=== PATIENT | male | born 1955 | race Caucasian/White ===

== ENCOUNTER 2024-07-27 11:35 | Inpatient (IN) | payer MEDICARE, MEDICAID, SELFPAY ==
[2024-07-27] VITALS (18 sets, daily range): BP systolic 108–160; BP diastolic 62–78; PULSE 83–124; RESP 18–42; TEMP 36.6–37; O2SAT 4–99; BMI 21.9
--- NOTE | ~2024-07-27 | XR_ITS ---
EXAMINATION: XR CHEST CLINICAL INFORMATION: Hypoxia. Shortness of breath. COMPARISON: None available. TECHNIQUE: Frontal view of the chest was obtained. FINDINGS: Patchy right mid/lower lung airspace opacities. No left-sided airspace consolidation. No pleural effusion or pneumothorax. Unremarkable cardiomediastinal silhouette. XR/XR chest 1V IMPRESSION: Patchy right mid/lower lung airspace opacities. Electronically signed by: Braxton Freeman MD 07/27/2024 02:12 PM EDT
--- NOTE | 2024-07-27 12:21 | PC.NURSE ---
pt is alert and oriented, skin pwd, respirations slightly labored breathing at 24-28 at this time, ls slightly diminished on the the left sided, sating 94-95% on room air, pt reports for the the last three days having a productive cough, with yellow phlem, midsternal chest pain that is constant, cough gets worse when the pt lays flat, sinus tach on the monitor
[2024-07-27 12:36] LABS: Hematocrit 42.5 % (42.0-52.0); Hemoglobin 14.8 g/dl (14.0-18.0); Mean Corpuscular HGB Conc 34.8 g/dl (31.0-36.0); Mean Corpuscular Hemoglobin 33.2 pg (27.0-33.0); Mean Corpuscular Volume 95.3 fL (80.0-98.0); Mean Platelet Volume 10.8 fL (9.4-12.4); Platelet Count 226 X10*3/uL (160-400); Red Blood Count 4.46 X10*6/uL (4.60-5.80); Red Cell Distribution Width 14.1 % (11.0-16.0); White Blood Count 14.1 X10*3/uL (4.8-10.8)
--- NOTE | 2024-07-27 12:37 | ED_ITS ---
HPI - General Adult General Chief complaint: Dyspnea Stated complaint: FLU LIKE Time Seen by Provider: 07/27/24 11:52 Source: patient and EMS Mode of arrival: EMS Limitations: no limitations History of Present Illness ED Provider: Cristopher ALCANTARA HPI narrative: This is a 68-year-old male history of COPD, asthma presenting to the emergency department with cough, fatigue, malaise, myalgias, subjective fevers and chills, chest discomfort with cough for the past 3 days. Patient also reports associated shortness of breath when he coughs. He denies sick contacts. He reports he just feeling overall unwell. At this time denies abdominal pain, nausea vomiting, diarrhea, headache, vision changes, dizziness, changes in bowel or urinary habits Related Data Allergies Allergy/AdvReac Type Severity Reaction Status Date / Time Penicillins [PENICILLINS] Allergy Intermediate UPSET Verified 07/27/24 11:54 STOMACH acetaminophen [ACETAMINOPHEN] Allergy Unknown DIARRHEA Verified 07/27/24 11:54 codeine [CODEINE] Allergy Unknown NAUSEA & Verified 07/27/24 11:54 VOMITING latex [LATEX] Allergy Unknown RASH Verified 07/27/24 11:54 Review of Systems 2 Review of Systems: Yes all other systems are reviewed and are negative PMFSH Past Medical History Attestation statement: The following information was validated with the patient. Source: old records reviewed and nursing notes reviewed Social History Social History Smoked in Last 30 Days: Yes Use of substances other than those prescribed or required for medical reasons: Yes Substance Use Type: Marijuana Advance Directives: No Advance Directives Information Provided: No Do you have a plan to hurt others: No Plan Physical Exam ED Vital Signs: Vital Signs - 24 hr 07/27/24 11:51 07/27/24 11:58 07/27/24 12:17 Temperature 98.3 F Pulse Rate 107 H Respiratory Rate 28 H 26 H 25 H Blood Pressure 149/73 H Pulse Oximetry 94 Oxygen Delivery Method Room Air 07/27/24 12:48 07/27/24 12:55 07/27/24 13:38 Temperature 97.9 F Pulse Rate 99 96 92 Respiratory Rate 24 H 20 22 H Blood Pressure 125/77 134/71 Pulse Oximetry 93 95 Oxygen Delivery Method Room Air Room Air BMI result Body Mass Index 21.9 vss Appearance: Alert.? Oriented X3.? No acute distress.? Head: Normocephalic, atraumatic, no step-offs or deformities Eyes: Pupils equal, round and reactive to light.? ENT: Pharynx normal.? Neck: Normal inspection.? Neck supple.? CVS: Normal heart rate and rhythm.? Pulses normal.? Respiratory: No respiratory distress.? Breath sounds very faint expiratory wheeze b/l.? Abdomen: Soft and nontender.? Skin: Skin warm and dry.? Normal skin color.? Normal skin turgor.? Extremities: No lower extremity edema.? No calf ttp. 5/5 strength to bilateral upper and lower extremities Neuro: Oriented X 3.? No motor deficit.? No sensory deficit. CN 2-12 intact Course Reevaluation(s) Reevaluation #1: CBC with elevated white blood cell count with left shift. Chemistry no acute findings needing intervention. Troponin 43.8 likely secondary to demand ischemia/type 2 injury unlikley acs. BNP 122. Will repeat troponin at this time. Flu/Covid/RSV negative. CXR patchy right mid/lower lung airspace opacities patient will be covered with ceftriaxone and azithromycin. He was given 5 mg albuterol and Solu-Medrol however again developed wheezing. Will order bronch protocol at this time. Nursing tried to get patient up he became very tachypneic with labored breathing and became tachycardic in the 120s. Time: 15:10 Medications Administered Discontinued Medications Generic Name Dose Route Start Last Admin Trade Name Freq PRN Reason Stop Dose Admin Albuterol Sulfate 5 mg 07/27/24 12:39 07/27/24 12:54 Albuterol Sulfate 2.5 Mg/0.5 Ml Vial.Neb INHALE 07/27/24 12:40 5 mg ONCE ONE Administration Ceftriaxone Sodium 1 gm/ 50 mls @ 100 mls/hr 07/27/24 14:19 07/27/24 14:56 Sodium Chloride IV 07/27/24 14:48 100 mls/hr ONCE ONE Administration Methylprednisolone Sodium Succinate 125 mg 07/27/24 12:39 07/27/24 12:49 Methylprednisolone Sod Succ 125 Mg/2 Ml Vial IVPUSH 07/27/24 12:40 125 mg ONCE ONE Administration Medical Decision Making Medical Decision Making MDM Narrative: 68-year-old male presents for upper respiratory symptoms x3 days Physical exam faint expiratory wheezing bilaterally History and physical exam concerning for upper respiratory infection versus flu versus COVID versus RSV. Unlikely pneumonia, PE, ACS, dysrhythmia, acute respiratory distress Plan labs, viral test, chest x-ray, urine Differential Diagnosis Differential Diagnoses: The differential diagnosis associated with the presentation includes History and physical exam concerning for upper respiratory infection versus flu versus COVID versus RSV. Unlikely pneumonia, PE, ACS, dysrhythmia, acute respiratory distress Admission/Observation Consideration of admission/observation: Escalation of care including admission/observation considered possible Lab Data MDM Lab Attestation statement: I reviewed the patient's lab results. 07/27/24 12:28 07/27/24 12:28 Labs: Lab Results 07/27/24 07/27/24 Range/Units 12:28 14:45 WBC 14.1 H (4.8-10.8) X10*3/uL RBC 4.46 L (4.60-5.80) X10*6/uL Hgb 14.8 (14.0-18.0) g/dl Hct 42.5 (42.0-52.0) % MCV 95.3 (80.0-98.0) fL MCH 33.2 H (27.0-33.0) pg MCHC 34.8 (31.0-36.0) g/dl RDW 14.1 (11.0-16.0) % Plt Count 226 (160-400) X10*3/uL MPV 10.8 (9.4-12.4) fL Immature Gran % (Auto) Cancelled Neut % (Auto) Cancelled Lymph % (Auto) Cancelled [place] % (Auto) Cancelled Eos % (Auto) Cancelled Baso % (Auto) Cancelled Lymph # (Auto) Cancelled [place] # (Auto) Cancelled Eos # (Auto) Cancelled Baso # (Auto) Cancelled Abs Immat Gran (auto) Cancelled Absolute Neuts (auto) Cancelled Absolute Nucleated RBC 0.000 (0.0-0.012) X10*3/uL Nucleated RBC % (auto) 0.0 (0.0-0.2) /100WBC Neutrophils % (Manual) 87 H (45-73) % Band Neutrophils % 5 (3-5) % Lymphocytes % (Manual) 3 L (20-40) % Monocytes % (Manual) 5 (2-11) % Abs Neuts (Manual) 13.0 H (2.0-8.3) X10*3/uL Lymphocytes # (Manual) 0.4 L (1.2-4.9) X10*3/uL Monocytes # (Manual) 0.7 (0.1-1.2) X10*3/uL Toxic Vacuolation PRESENT Platelet Estimate NORMAL (NORMAL) Plt Morphology Comment NORMAL RBC Morphology NOTED [place] Cells 2+ (3-5) /OIF Acanthocytes (Spur) 2+ (3-5) /OIF Sodium 145 (135-145) mmol/L Potassium 3.5 (3.3-5.1) mmol/L Chloride 111 H (96-108) mmol/L Carbon Dioxide 23 (22-29) mmol/L Anion Gap 15 (12-20) BUN 11 (9-16) mg/dL Creatinine 0.70 (0.5-1.4) mg/dL Estim Creat Clear Calc 93.0 Estimated GFR > 60 Random Glucose 121 H (60-115) mg/dL Lactic Acid 1.7 (0.5-2.0) mmol/L Calcium 9.4 (8.4-10.2) mg/dL Magnesium 2.2 (1.6-2.6) mg/dL Total Bilirubin 0.7 (0.0-1.0) mg/dL AST 23 (5-37) U/L ALT 14 (0-40) U/L Alkaline Phosphatase 66 (39-117) U/L Troponin I High Sens 43.8 H (<3.5-35.0) ng/L B-Natriuretic Peptide 122 H (<100) pg/mL Total Protein 7.2 (6.5-8.0) g/dL Albumin 4.2 (3.5-5.0) g/dL Influenza Type A (PCR) NEGATIVE (Negative) Influenza Type B (PCR) NEGATIVE (Negative) RSV RNA Qual (PCR) NEGATIVE (Negative) SARS-CoV-2 RNA (RT-PCR) NEGATIVE (Negative) Independent Interpretation I performed an independent interpretation of an: Plain X-Ray Radiology Impression Discussion of test interpretation with radiology: I have reviewed the radiologist's reading. Independent Historian Clinical information obtained from an independent historian. History obtained from or confirmed by: EMS Chronic Conditions Patient?s care impacted by: Other (copd/ asthma ) Critical Care Time Critical Care Time Critical Care Time: Yes Total Critical Care Time: 35 Attestation: I attest to this time spent taking care of the patient, obtaining history, physical, reviewing labs, imaging, treatment of patients condition +/- specialist/hospitalist consult Discharge Plan Discharge Clinical Impression: Pneumonia Patient Disposition: Still a Patient Print Language: Green[place]ic
--- NOTE | 2024-07-27 12:40 | ECG_ITS ---
Test Reason : SOB Blood Pressure : / mmHG Vent. Rate : 103 BPM Atrial Rate : 103 BPM P-R Int : 124 ms QRS Dur : 090 ms QT Int : 358 ms P-R-T Axes : 075 042 073 degrees QTc Int : 468 ms Sinus tachycardia Otherwise normal ECG No previous ECGs available Referred By: Sonia Motley Electronically Signed By:MOSES RAO
[2024-07-27 12:49] LABS: Alanine Aminotransferase 14 U/L (0-40); Albumin Level 4.2 g/dL (3.5-5.0); Alkaline Phosphatase 66 U/L (39-117); Anion Gap 15 (12-20); Aspartate Amino Transferase 23 U/L (5-37); Bilirubin Total 0.7 mg/dL (0.0-1.0); Blood Urea Nitrogen 11 mg/dL (9-16); Calcium 9.4 mg/dL (8.4-10.2); Carbon Dioxide 23 mmol/L (22-29); Chloride 111 mmol/L (96-108); Estimated Glomerular Filt Rate > 60; Glucose Random 121 mg/dL (60-115); Magnesium 2.2 mg/dL (1.6-2.6); Potassium 3.5 mmol/L (3.3-5.1); Sodium 145 mmol/L (135-145); Total Protein 7.2 g/dL (6.5-8.0)
[2024-07-27] MEDS: methylPREDNISolone Sod Succ 125 MG/2 ML VIAL IVPUSH (12:49)
[2024-07-27] MEDS: Albuterol Sulfate 2.5 MG/0.5 ML VIAL.NEB 5 MG INHALE (12:54)
[2024-07-27 12:55] LABS: B Type Natriuretic Peptide 122 pg/mL (<100)
[2024-07-27 12:56] LABS: Troponin-I High Sensitivity 43.8 ng/L (<3.5-35.0)
[2024-07-27 13:05] LABS: Band Neutrophils Percent 5 % (3-5); Lymphocytes Absolute Manual 0.4 X10*3/uL (1.2-4.9); Lymphocytes Percent Manual 3 % (20-40); Monocytes Absolute Manual 0.7 X10*3/uL (0.1-1.2); Monocytes Percent Manual 5 % (2-11); Neutrophils Percent Manual 87 % (45-73)
[2024-07-27 13:08] LABS: RBC Morphology NOTED
[2024-07-27 13:09] LABS: Acanthocytes 2+ (3-5) /OIF; Burr Cells 2+ (3-5) /OIF; Platelet Estimate NORMAL (NORMAL); Platelet Morphology Comment NORMAL; Toxic Vacuolation PRESENT
[2024-07-27 13:13] LABS: Influenza A PCR NEGATIVE (Negative); Influenza B PCR NEGATIVE (Negative); Resp Syncy Virus RNA Qual PCR NEGATIVE (Negative); SARS COV2 PCR INHOUSE NEGATIVE (Negative)
[2024-07-27] MEDS: cefTRIAXone sodium 1 GM in 0.9 % Sodium Chloride 50 ML IV (14:56)
--- NOTE | 2024-07-27 15:00 | PC.NURSE ---
pt used the commode, had diarrhea, after getting into bed from just transferring from commode to bed and few steps pt extremely sob, labored breathing around 30, upper airway wheezing, and purse lip breathing at this time, hr rate also elevated in the 120, [place] LYLE aware of this event
[2024-07-27 15:05] LABS: Lactic Acid 1.7 mmol/L (0.5-2.0)
[2024-07-27] MEDS: Azithromycin 500 MG in 0.9 % Sodium Chloride 250 ML 125 MG IV (15:42)
[2024-07-27] MEDS: Albuterol Sulfate 5 MG, Albuterol/Iprat 2.5/0.5MG 3 ML 3 ML INHALE (15:52)
[2024-07-27 16:21] LABS: Troponin-I High Sensitivity 43.1 ng/L (<3.5-35.0)
--- NOTE | 2024-07-27 16:30 | PC.NURSE ---
pt yelling out that he is having a hard time breathing, pt was found to diaphoretic, red in the face, tachypneic around 40's, pt still sating decent at 92% on the 2l, extremely anxious tachy on the monitor in the low 120's plan to put the pt on high flow oxygen, seting on high flow is 44liter per min and tolerating well
[2024-07-27] MEDS: Furosemide 20 MG/2 ML VIAL IVPUSH (16:34)
[2024-07-27] MEDS: fentaNYL citrate/PF 100 MCG/2 ML VIAL 25 MCG IVPUSH (16:35)
[2024-07-27 16:37] LABS: ABG Refer to POC result
[2024-07-27 16:38] LABS: ABG Base Excess -4.8 mmol/L; ABG HCO3 19 mmol/L (22-26); ABG pCO2 32 mmHg (32-45); ABG pH 7.37 (7.35-7.45); ABG pO2 102 mmHg (83-108)
--- NOTE | 2024-07-27 17:45 | P.HPHOSP_ITS ---
History of Present Illness Date of Service: 07/27/24 Attending physician on admission: Den Collins Chief Complaint: Shortness of breath This is a 68-year-old male with history of COPD who presents to the emergency department with complaints of shortness of breath. History is limited due to dyspnea. Patient states that he has had shortness of breath for the past 2-3 days and then associated productive cough. He denies any associated fever or chills. He denies any recent sick contacts. In the emergency department he was tachycardic and tachypneic required IV fentanyl and transitioned from nasal cannula to high-flow oxygen. Chest x-ray showed patchy right mid/lower lung airspace opacities. Influenza, RSV, COVID-19 PCR negative. He received breathing treatments, Solu-Medrol, antibiotics and remained persistently tachypneic and hypoxic and as above had to be transitioned to high-flow oxygen. We will be admitted for further management of acute COPD exacerbation and pneumonia. Review of Systems 2 Review of Systems: Yes all other systems are reviewed and are negative Constitutional: Constitutional: Denies fever(s) Cardiovascular: Cardiovascular: Denies chest pain and Reports dyspnea Respiratory: Respiratory: Reports cough and Reports dyspnea [facility] Medical History (Updated 07/27/24 @ 17:58 by DARIELA Grady) COPD (chronic obstructive pulmonary disease) Functional capacity: independent ambulation Social History Smoked in Last 30 Days: Yes Use of substances other than those prescribed or required for medical reasons: Yes Substance Use Type: Marijuana Advance Directives: No Advance Directives Information Provided: No Do you have a plan to hurt others: No Plan Meds Allergies Allergy/AdvReac Type Severity Reaction Status Date / Time Penicillins [PENICILLINS] Allergy Intermediate UPSET Verified 07/27/24 11:54 STOMACH acetaminophen [ACETAMINOPHEN] Allergy Unknown DIARRHEA Verified 07/27/24 11:54 codeine [CODEINE] Allergy Unknown NAUSEA & Verified 07/27/24 11:54 VOMITING latex [LATEX] Allergy Unknown RASH Verified 07/27/24 11:54 Active Medications: Current Medications Acetaminophen (Acetaminophen 325 Mg Tablet) 650 mg PO Q6H PRN PRN Reason: Pain, Mild (Pain Scale 1-3), fever or headache Albuterol/Ipratropium (Albuterol/Iprat 2.5/0.5mg 3 Ml Ampul.Neb) 3 ml INHALE RQ6H WHILE AWAKE SADE Benzonatate (Benzonatate 100 Mg Capsule) 100 mg PO TID PRN PRN Reason: Cough Enoxaparin Sodium (Enoxaparin Sodium 40 Mg/0.4 Ml Syringe) 40 mg SUBCUT Q24H [facility] Hydromorphone HCl (Hydromorphone Hcl 0.5 Mg/0.5 Ml Syringe) 0.25 mg IVPUSH Q4H PRN; Protocol PRN Reason: Pain, Severe (Pain Scale 7-10) Levalbuterol HCl (Levalbuterol Hcl 1.25 Mg/3 Ml Vial.Neb) 1.25 mg INHALE Q3H PRN PRN Reason: Shortness of Breath/Wheezing Magnesium Hydroxide (Milk Of Magnesia 30 Ml Oral.Susp) 30 ml PO DAILY PRN PRN Reason: Constipation Melatonin (Melatonin 3 Mg Tablet) 6 mg PO BEDTIME PRN PRN Reason: Insomnia Nicotine (Nicotine 14 Mg Patch.Td24) 14 mg TRANSDERMA DAILY [facility] Sodium Chloride (0.9 % Sodium Chloride Flush 3 Ml Syringe) 3 ml IVFLUSH QSHIFT [facility] Home Medications ?Medication ?Instructions ?Recorded ?Confirmed ?Last Taken ?Type omeprazole 20 mg capsule,delayed 20 mg PO DAILY 07/27/24 Unknown History release pregabalin 150 mg capsule 1 mg PO BID@1400,2100 07/27/24 Unknown History pregabalin 150 mg capsule 300 mg PO DAILY 07/27/24 Unknown History Physical Exam 2 Vital Signs and Narrative: Vital Signs: Last Vital Signs Temp 97.9 F 07/27/24 13:38 Pulse 119 H 07/27/24 16:35 Resp 38 H 07/27/24 16:35 BP 129/74 07/27/24 16:34 Pulse Ox 99 07/27/24 16:35 O2 Del Method High Flow Nasal C annula 07/27/24 16:35 O2 Flow Rate 2 07/27/24 16:30 BMI result Body Mass Index 21.9 Const: Other: anxious, tachypnic General: alert and awake Nutritional Appearance: thin O rientation/consciousness: patient oriented x3 Resp: Other: appears tachypnic, b/l wheeze Cardio: Rate: tachycardic GI: Inspection: No distended Palpation (GI): Soft to palpation and nontender Neuro: General: patient oriented x3, moves all extremities and CN's II-XI intact bilaterally Extrem: General: Yes no pedal edema Results Labs 07/27/24 12:28 07/27/24 12:28 Labs: Laboratory Results - last 24 hr 07/27/24 07/27/24 07/27/24 12:28 14:45 15:51 MCV 95.3 MCH 33.2 H MCHC 34.8 RDW 14.1 Plt Count 226 MPV 10.8 Immature Gran % (Auto) Cancelled Neut % (Auto) Cancelled Lymph % (Auto) Cancelled [place] % (Auto) Cancelled Eos % (Auto) Cancelled Baso % (Auto) Cancelled Lymph # (Auto) Cancelled [place] # (Auto) Cancelled Eos # (Auto) Cancelled Baso # (Auto) Cancelled Abs Immat Gran (auto) Cancelled Absolute Neuts (auto) Cancelled Absolute Nucleated RBC 0.000 Nucleated RBC % (auto) 0.0 Neutrophils % (Manual) 87 H Band Neutrophils % 5 Lymphocytes % (Manual) 3 L Monocytes % (Manual) 5 Abs Neuts (Manual) 13.0 H Lymphocytes # (Manual) 0.4 L Monocytes # (Manual) 0.7 Toxic Vacuolation PRESENT Platelet Estimate NORMAL Plt Morphology Comment NORMAL RBC Morphology NOTED [place] Cells 2+ (3-5) Acanthocytes (Spur) 2+ (3-5) O2 Saturation ABG pH at Pt Temp ABG pCO2 at Pt Temp ABG pO2 at Pt Temp ABG HCO3 ABG Base Excess (Actual) Anion Gap 15 Estim Creat Clear Calc 93.0 Estimated GFR > 60 Random Glucose 121 H Lactic Acid 1.7 Calcium 9.4 Magnesium 2.2 Total Bilirubin 0.7 AST 23 ALT 14 Alkaline Phosphatase 66 Troponin I High Sens 43.8 H 43.1 H B-Natriuretic Peptide 122 H Total Protein 7.2 Albumin 4.2 Influenza Type A (PCR) NEGATIVE Influenza Type B (PCR) NEGATIVE RSV RNA Qual (PCR) NEGATIVE SARS-CoV-2 RNA (RT-PCR) NEGATIVE 07/27/24 16:35 MCV MCH MCHC RDW Plt Count MPV Immature Gran % (Auto) Neut % (Auto) Lymph % (Auto) [place] % (Auto) Eos % (Auto) Baso % (Auto) Lymph # (Auto) [place] # (Auto) Eos # (Auto) Baso # (Auto) Abs Immat Gran (auto) Absolute Neuts (auto) Absolute Nucleated RBC Nucleated RBC % (auto) Neutrophils % (Manual) Band Neutrophils % Lymphocytes % (Manual) Monocytes % (Manual) Abs Neuts (Manual) Lymphocytes # (Manual) Monocytes # (Manual) Toxic Vacuolation Platelet Estimate Plt Morphology Comment RBC Morphology [place] Cells Acanthocytes (Spur) O2 Saturation 98.0 ABG pH at Pt Temp 7.37 ABG pCO2 at Pt Temp 32 ABG pO2 at Pt Temp 102 ABG HCO3 19 L ABG Base Excess (Actual) -4.8 Anion Gap Estim Creat Clear Calc Estimated GFR Random Glucose Lactic Acid Calcium Magnesium Total Bilirubin AST ALT Alkaline Phosphatase Troponin I High Sens B-Natriuretic Peptide Total Protein Albumin Influenza Type A (PCR) Influenza Type B (PCR) RSV RNA Qual (PCR) SARS-CoV-2 RNA (RT-PCR) Imaging Radiologist's Impressions: Impressions Chest X-Ray 07/27/24 12:04 IMPRESSION: Patchy right mid/lower lung airspace opacities. Electronically signed by: Braxton Freeman MD 07/27/2024 02:12 PM EDT RP Workstation: [id number] Assessment and Plan (1) Pneumonia: Status: Acute (2) Acute respiratory failure with hypoxemia: Status: Acute (3) COPD exacerbation: Status: Acute Plan This is a 68-year-old male with history of COPD, active smoker who presents to the emergency department with 3 day history of increasing shortness of breath and productive cough found to have pneumonia Sepsis due to pneumonia No severe features, lactic acid 1.7 Met sepsis criteria with tachycardia, tachypnea and leukocytosis 14.1 Will treat with IV ceftriaxone, IV azithromycin Follow blood cultures Acute COPD exacerbation Due to above Systemic steroids, breathing treatments Acute respiratory failure with hypoxia Due to pneumonia and COPD management as above Wean high-flow oxygen as tolerated Tobacco dependence Smoking cessation advised NRT elevated troponin flat at 43 likely due to demand from hypoxia no chest pain med rec pending at the time of admission DVT prophylaxis-Lovenox Code status-full code Attending: Dr Collins Patient will likely require 2 midnight stay in the hospital for management of acute respiratory failure requiring antibiotics, steroids, high-flow oxygen and close monitoring of respiratory status Quality Stroke Does the patient have a stroke diagnosis?: No VTE Prior VTE?: No VTE Risk Level:: Medical - moderate - high VTE Device Contraindication: N/A - Device Ordered VTE Drug Contraindication: N/A - Med Ordered
[2024-07-27] MEDS: Enoxaparin Sodium 40 MG/0.4 ML SYRINGE SUBCUT (18:21)
[2024-07-27] MEDS: Nicotine 14 MG PATCH.TD24 TRANSDERMA (18:21)
[2024-07-27 18:54] LABS: Venous Blood Gas Refer to POC result
[2024-07-27 18:55] LABS: VBG Base Excess -1.3 mmol/L; VBG HCO3 22 mmol/L (22-26); VBG pCO2 34 mmHg; VBG pH 7.41 (7.32-7.43); VBG pO2 65 mmHg
[2024-07-27] MEDS: methylPREDNISolone Sod Succ 40 MG/ML VIAL IVPUSH (19:14)
[2024-07-27] MEDS: Albuterol/Iprat 2.5/0.5MG 3 ML AMPUL.NEB INHALE (19:23)
[2024-07-27] MEDS: 0.9 % Sodium Chloride Flush 3 ML SYRINGE IVFLUSH (22:00)
[2024-07-28] VITALS (13 sets, daily range): BP systolic 121–166; BP diastolic 61–84; PULSE 62–94; RESP 16–22; TEMP 36–36.8; O2SAT 95–99
[2024-07-28] MEDS: Benzonatate 100 MG CAPSULE PO (00:10)
[2024-07-28] MEDS: methylPREDNISolone Sod Succ 40 MG/ML VIAL IVPUSH ×2 (06:18→17:12)
[2024-07-28 07:04] LABS: Hematocrit 40.8 % (42.0-52.0); Hemoglobin 14.2 g/dl (14.0-18.0); Mean Corpuscular HGB Conc 34.8 g/dl (31.0-36.0); Mean Corpuscular Hemoglobin 32.9 pg (27.0-33.0); Mean Corpuscular Volume 94.7 fL (80.0-98.0); Mean Platelet Volume 11.3 fL (9.4-12.4); Platelet Count 247 X10*3/uL (160-400); Red Blood Count 4.31 X10*6/uL (4.60-5.80); Red Cell Distribution Width 13.9 % (11.0-16.0)
[2024-07-28 07:21] LABS: Anion Gap 14 (12-20); Blood Urea Nitrogen 15 mg/dL (9-16); Calcium 9.6 mg/dL (8.4-10.2); Carbon Dioxide 24 mmol/L (22-29); Chloride 108 mmol/L (96-108); Creatinine Clr Calc Pharmacy 95.6; Estimated Glomerular Filt Rate > 60; Glucose Random 132 mg/dL (60-115); Sodium 143 mmol/L (135-145)
[2024-07-28] MEDS: Albuterol/Iprat 2.5/0.5MG 3 ML AMPUL.NEB INHALE ×3 (07:45→18:49)
--- NOTE | 2024-07-28 08:13 | PHA.MEDREC ---
Addendum entered by Navjot Flores RPh 07/28/24 09:07: MED REC CHECKED BY [facility] Original Note: Pharmacy Consult ? Medication Reconciliation Pharmacy has completed the medication reconciliation. Spoke to Pt and utilized list from [place] to confirm meds.
[2024-07-28] MEDS: 0.9 % Sodium Chloride Flush 3 ML SYRINGE IVFLUSH ×3 (08:26→20:18)
--- NOTE | 2024-07-28 09:05 | P.PNIM_ITS ---
Subjective Subjective Date of Service: 07/28/24 Interval History: Seen and examined this morning Follow-up for respiratory failure, pneumonia Did not sleep well overnight Breathing is better on high-flow, abdomen is sore from coughing had diarrhea overnight Review of Systems Review of Systems: Yes all other systems are reviewed and are negative Constitutional Constitutional: Denies chills and Denies fever(s) Cardiovascular Cardiovascular: Denies chest pain, Denies palpitations and Reports dyspnea Respiratory Respiratory: Reports cough and Reports dyspnea Gastrointestinal Gastrointestinal: Denies nausea and Denies vomiting Endocrine Endocrine: Denies palpitations Physical Exam 2 Vital Signs: Vital Signs: Last Vital Signs Temp 97.6 F 07/28/24 08:00 Pulse 82 07/28/24 08:00 Resp 20 07/28/24 08:00 BP 166/84 H 07/28/24 08:00 Pulse Ox 97 07/28/24 08:00 O2 Del Method High Flow Nasal C annula 07/28/24 08:00 O2 Flow Rate 45 07/28/24 08:00 FiO2 30 07/28/24 08:00 BMI result Body Mass Index 21.9 Const: Other: anxious, tachypnic General: alert and awake Nutritional Appearance: thin O rientation/consciousness: patient oriented x3 Resp: Other: diminished with b/l expiratory wheeze Effort & Inspection: no respiratory distress and no use of accessory muscles Cardio: Rate: regular rate GI: Inspection: No distended Palpation (GI): Soft to palpation and nontender Neuro: General: patient oriented x3, moves all extremities and CN's II-XI intact bilaterally Extrem: General: Yes no pedal edema Objective Data Active Medications Acetaminophen (Acetaminophen 325 Mg Tablet) 650 mg PO Q6H PRN PRN Reason: Pain, Mild (Pain Scale 1-3), fever or headache Albuterol/Ipratropium (Albuterol/Iprat 2.5/0.5mg 3 Ml Ampul.Neb) 3 ml INHALE RQ6H WHILE AWAKE [facility] Last Admin: 07/28/24 07:45 Dose: 3 ml Documented By: MARTA Benzonatate (Benzonatate 100 Mg Capsule) 100 mg PO TID PRN PRN Reason: Cough Last Admin: 07/28/24 00:10 Dose: 100 mg Documented By: MARIEL Enoxaparin Sodium (Enoxaparin Sodium 40 Mg/0.4 Ml Syringe) 40 mg SUBCUT Q24H [facility] Last Admin: 07/27/24 18:21 Dose: 40 mg Documented By: EMA Escitalopram Oxalate (Escitalopram Oxalate 20 Mg Tablet) 20 mg PO DAILY [facility] Hydromorphone HCl (Hydromorphone Hcl 0.5 Mg/0.5 Ml Syringe) 0.25 mg IVPUSH Q4H PRN; Protocol PRN Reason: Pain, Severe (Pain Scale 7-10) Ceftriaxone Sodium 1 gm/ (Sodium Chloride) 50 mls @ 100 mls/hr IV Q12H [facility] Azithromycin 500 mg/ Sodium (Chloride) 250 mls @ 125 mls/hr IV Q24H [facility] Levalbuterol HCl (Levalbuterol Hcl 1.25 Mg/3 Ml Vial.Neb) 1.25 mg INHALE Q3H PRN PRN Reason: Shortness of Breath/Wheezing Lorazepam (Lorazepam 0.5 Mg Tablet) 0.5 mg PO QID PRN PRN Reason: Anxiety Magnesium Hydroxide (Milk Of Magnesia 30 Ml Oral.Susp) 30 ml PO DAILY PRN PRN Reason: Constipation Methylprednisolone Sodium Succinate (Methylprednisolone Sod Succ 40 Mg/Ml Vial) 40 mg IVPUSH Q12H [facility] Last Admin: 07/28/24 06:18 Dose: 40 mg Documented By: MARIEL Nicotine (Nicotine 14 Mg Patch.Td24) 14 mg TRANSDERMA DAILY [facility] Last Admin: 07/28/24 08:26 Dose: Not Given Documented By: SCOTT Non-Admin Reason: Patient Refused Omeprazole (Omeprazole 20 Mg Capsule.) 20 mg PO DAILY@0630 [facility] Pregabalin (Pregabalin 150 Mg Capsule) 300 mg PO DAILY [facility] Pregabalin (Pregabalin 150 Mg Capsule) 150 mg PO BID@1400,2100 [facility] Sodium Chloride (0.9 % Sodium Chloride Flush 3 Ml Syringe) 3 ml IVFLUSH QSHIFT [facility] Last Admin: 07/28/24 08:26 Dose: 3 ml Documented By: SCOTT Sucralfate (Sucralfate 1 Gm Tablet) 1 gm PO QID [facility] Tamsulosin HCl (Tamsulosin Hcl 0.4 Mg Capsule) 0.8 mg PO DAILY [facility] Zolpidem Tartrate (Zolpidem Tartrate 5 Mg Tablet) 10 mg PO BEDTIME PRN PRN Reason: Insomnia Labs 07/28/24 05:59 07/28/24 05:59 Labs: Laboratory Results - last 24 hr 07/27/24 07/27/24 07/27/24 12:28 14:45 15:51 MCV 95.3 MCH 33.2 H MCHC 34.8 RDW 14.1 Plt Count 226 MPV 10.8 Immature Gran % (Auto) Cancelled Neut % (Auto) Cancelled Lymph % (Auto) Cancelled [place] % (Auto) Cancelled Eos % (Auto) Cancelled Baso % (Auto) Cancelled Lymph # (Auto) Cancelled [place] # (Auto) Cancelled Eos # (Auto) Cancelled Baso # (Auto) Cancelled Abs Immat Gran (auto) Cancelled Absolute Neuts (auto) Cancelled Absolute Nucleated RBC 0.000 Nucleated RBC % (auto) 0.0 Neutrophils % (Manual) 87 H Band Neutrophils % 5 Lymphocytes % (Manual) 3 L Monocytes % (Manual) 5 Abs Neuts (Manual) 13.0 H Lymphocytes # (Manual) 0.4 L Monocytes # (Manual) 0.7 Toxic Vacuolation PRESENT Platelet Estimate NORMAL Plt Morphology Comment NORMAL RBC Morphology NOTED [place] Cells 2+ (3-5) Acanthocytes (Spur) 2+ (3-5) O2 Saturation ABG pH at Pt Temp ABG pCO2 at Pt Temp ABG pO2 at Pt Temp ABG HCO3 ABG Base Excess (Actual) VBG pH VBG pCO2 VBG pO2 VBG HCO3 VBG O2 Saturation VBG Base Excess Anion Gap 15 Estim Creat Clear Calc 93.0 Estimated GFR > 60 Random Glucose 121 H Lactic Acid 1.7 Calcium 9.4 Magnesium 2.2 Total Bilirubin 0.7 AST 23 ALT 14 Alkaline Phosphatase 66 Troponin I High Sens 43.8 H 43.1 H B-Natriuretic Peptide 122 H Total Protein 7.2 Albumin 4.2 Influenza Type A (PCR) NEGATIVE Influenza Type B (PCR) NEGATIVE RSV RNA Qual (PCR) NEGATIVE SARS-CoV-2 RNA (RT-PCR) NEGATIVE 07/27/24 07/27/24 07/28/24 16:35 18:51 05:59 MCV 94.7 MCH 32.9 MCHC 34.8 RDW 13.9 Plt Count 247 MPV 11.3 Immature Gran % (Auto) Neut % (Auto) Lymph % (Auto) [place] % (Auto) Eos % (Auto) Baso % (Auto) Lymph # (Auto) [place] # (Auto) Eos # (Auto) Baso # (Auto) Abs Immat Gran (auto) Absolute Neuts (auto) Absolute Nucleated RBC 0.000 Nucleated RBC % (auto) 0.0 Neutrophils % (Manual) Band Neutrophils % Lymphocytes % (Manual) Monocytes % (Manual) Abs Neuts (Manual) Lymphocytes # (Manual) Monocytes # (Manual) Toxic Vacuolation Platelet Estimate Plt Morphology Comment RBC Morphology [place] Cells Acanthocytes (Spur) O2 Saturation 98.0 ABG pH at Pt Temp 7.37 ABG pCO2 at Pt Temp 32 ABG pO2 at Pt Temp 102 ABG HCO3 19 L ABG Base Excess (Actual) -4.8 VBG pH 7.41 VBG pCO2 34 VBG pO2 65 VBG HCO3 22 VBG O2 Saturation 93.0 VBG Base Excess -1.3 Anion Gap 14 Estim Creat Clear Calc 95.6 Estimated GFR > 60 Random Glucose 132 H Lactic Acid Calcium 9.6 Magnesium Total Bilirubin AST ALT Alkaline Phosphatase Troponin I High Sens B-Natriuretic Peptide Total Protein Albumin Influenza Type A (PCR) Influenza Type B (PCR) RSV RNA Qual (PCR) SARS-CoV-2 RNA (RT-PCR) Assessment and Plan (1) COPD exacerbation: Status: Acute (2) Acute respiratory failure with hypoxemia: Status: Acute (3) Pneumonia: Status: Acute Plan This is a 68-year-old male with history of COPD, active smoker who presents to the emergency department with 3 day history of increasing shortness of breath and productive cough found to have pneumonia Sepsis due to pneumonia No severe features, lactic acid 1.7 Met sepsis criteria with tachycardia, tachypnea and leukocytosis 14.1, all have resolved at this time continue IV ceftriaxone, IV azithromycin, started 07/27 Follow blood cultures Flu, covid, RSV negative; full RPP pending Acute COPD exacerbation Due to above Continue systemic steroids, breathing treatments Acute respiratory failure with hypoxia Due to pneumonia and COPD management as above Wean high-flow oxygen as tolerated Diarrhea will check cdif and stool studies could be r/t antibiotics Tobacco dependence Smoking cessation advised NRT elevated troponin flat at 43 likely due to demand from hypoxia no chest pain mood continue citalopram, ativan gerd continue prilosec, carafate BPH/h/o prostate ca continue flomax DVT prophylaxis-Lovenox Code status-full code Requires ongoing stay in the hospital for management of acute respiratory failure requiring antibiotics, steroids, high-flow oxygen and close monitoring of respiratory status Quality Stroke Does the patient have a stroke diagnosis?: No VTE Prior VTE?: No VTE Risk Level:: Medical - moderate - high VTE Device Contraindication: N/A - Device Ordered VTE Drug Contraindication: N/A - Med Ordered
[2024-07-28] MEDS: Escitalopram Oxalate 20 MG TABLET PO (09:13)
[2024-07-28] MEDS: Pregabalin 150 MG CAPSULE 300 MG PO (09:13)
[2024-07-28] MEDS: Sucralfate 1 GM TABLET PO ×4 (09:13→20:18)
[2024-07-28] MEDS: Tamsulosin HCL 0.4 MG CAPSULE 0.8 MG PO (09:13)
[2024-07-28] MEDS: Omeprazole 20 MG CAPSULE.DR PO (09:13)
[2024-07-28 10:07] LABS: Adenovirus PCR Not Detected (Not Detect.); Bordetella parapertussis PCR Not Detected (Not Detect.); Bordetella pertussis PCR Not Detected (Not Detect.); Chlamydia pneumoniae PCR Not Detected (Not Detect.); Coronavirus 229E PCR Not Detected (Not Detect.); Coronavirus HKU1 PCR Not Detected (Not Detect.); Coronavirus NL63 PCR Not Detected (Not Detect.); Coronavirus OC43 PCR Not Detected (Not Detect.); Human metapneumovirus PCR Not Detected (Not Detect.); Influenza A PCR Not Detected (Not Detect.); Influenza B PCR Not Detected (Not Detect.); Mycoplasma pneumoniae PCR Not Detected (Not Detect.); Parainfluenza 1 PCR Not Detected (Not Detect.); Parainfluenza 2 PCR Not Detected (Not Detect.); Parainfluenza 3 PCR Not Detected (Not Detect.); Parainfluenza 4 PCR Not Detected (Not Detect.); RSV PCR Not Detected (Not Detect.); Rhino/Enterovirus PCR Detected (Not Detect.)
[2024-07-28 10:14] LABS: CDiff Gene PCR NEGATIVE (Negative)
[2024-07-28 10:15] LABS: SARS-CoV-2 PCR Not Detected (Not Detect.)
[2024-07-28 11:26] LABS: Adenovirus F 40/41 Not Detected (Not Detect.); Astrovirus Not Detected (Not Detect.); Campylobacter Not Detected (Not Detect.); Cryptosporidium Not Detected (Not Detect.); Cyclospora cayetanensis Not Detected (Not Detect.); E. coli EAEC Not Detected (Not Detect.); E. coli EPEC Not Detected (Not Detect.); E. coli ETEC Not Detected (Not Detect.); E. coli STEC Not Detected (Not Detect.); Entamoeba histolytica Not Detected (Not Detect.); Giardia lamblia Not Detected (Not Detect.); Norovirus GI/GII Not Detected (Not Detect.); Plesiomonas shigelloides Not Detected (Not Detect.); Rotavirus A Not Detected (Not Detect.); Salmonella Not Detected (Not Detect.); Sapovirus Not Detected (Not Detect.); Shigella sp./EIEC Not Detected (Not Detect.); Vibrio Not Detected (Not Detect.); Vibrio Cholerae Not Detected (Not Detect.); Yersinia enterocolitica Not Detected (Not Detect.)
[2024-07-28] MEDS: Pregabalin 150 MG CAPSULE PO ×2 (14:04→20:17)
[2024-07-28] MEDS: cefTRIAXone sodium 1 GM in 0.9 % Sodium Chloride 50 ML IV (14:05)
[2024-07-28] MEDS: Azithromycin 500 MG in 0.9 % Sodium Chloride 250 ML 125 MG IV (14:05)
[2024-07-28] MEDS: ondansetron HCL 4 MG/2 ML VIAL IVPUSH (14:14)
[2024-07-28] MEDS: Potassium Chloride Packet 20 MEQ PACKET 40 MEQ PO ×2 (14:50→20:17)
--- NOTE | 2024-07-28 16:40 | MHC.CM.PN ---
CM ATTEMPTED TO SEE PT X2, PT WITH PROVIDER AND THEN ON PHONE CM WILL RETURN
--- NOTE | 2024-07-28 16:55 | MHC.CM.PN ---
PT REPORTS HE LIVES ALONE AND IS INDEPENDENT WITH CARE HE HAS NO DME AND NO SERVICES PT SAYS HE HAS A HCP NAMING HIS FRIEND LIZETH HIS AGENT, COPY REQUESTED PCP: MARBIN TAMAYO IMM DELIVERED DCP: HOME NO SERVICES PT WILL NEED SHUTTLE VS LYFT TRANSPORT
[2024-07-28] MEDS: Enoxaparin Sodium 40 MG/0.4 ML SYRINGE SUBCUT (17:12)
[2024-07-29] VITALS (12 sets, daily range): BP systolic 121–156; BP diastolic 69–75; PULSE 58–75; RESP 15–22; TEMP 36.1–36.6; O2SAT 96–99
[2024-07-29] MEDS: cefTRIAXone sodium 1 GM in 0.9 % Sodium Chloride 50 ML IV ×2 (03:25→13:34)
[2024-07-29] MEDS: methylPREDNISolone Sod Succ 40 MG/ML VIAL IVPUSH ×2 (05:04→17:27)
[2024-07-29] MEDS: Omeprazole 20 MG CAPSULE.DR PO (05:04)
[2024-07-29] MEDS: Albuterol/Iprat 2.5/0.5MG 3 ML AMPUL.NEB INHALE ×3 (07:39→19:30)
--- NOTE | 2024-07-29 08:23 | P.PNIM_ITS ---
Subjective Subjective Date of Service: 07/29/24 Interval History: Seen and examined this morning Follow-up for respiratory failure, pneumonia Did not sleep well overnight Breathing is better on high-flow, abdomen is sore from coughing had diarrhea overnight Review of Systems Review of Systems: Yes all other systems are reviewed and are negative Constitutional Constitutional: Denies chills and Denies fever(s) Cardiovascular Cardiovascular: Denies chest pain, Denies palpitations and Reports dyspnea Respiratory Respiratory: Reports cough and Reports dyspnea Gastrointestinal Gastrointestinal: Denies nausea and Denies vomiting Endocrine Endocrine: Denies palpitations Physical Exam 2 Vital Signs: Vital Signs: Last Vital Signs Temp 97.2 F 07/29/24 07:48 Pulse 67 07/29/24 07:48 Resp 18 07/29/24 07:48 BP 140/75 H 07/29/24 07:48 Pulse Ox 97 07/29/24 07:48 O2 Del Method High Flow Nasal C annula 07/29/24 07:48 O2 Flow Rate 35 07/29/24 03:11 FiO2 35 07/29/24 07:48 BMI result Body Mass Index 21.9 Appearing in no acute distress lung sounds are clear to auscultation heart regular rate rhythm, clear S1, S2 positive bowel sounds, abdomen is soft, nontender neuro patient is alert x3, no focal deficits Objective Data Active Medications Acetaminophen (Acetaminophen 325 Mg Tablet) 650 mg PO Q6H PRN PRN Reason: Pain, Mild (Pain Scale 1-3), fever or headache Albuterol/Ipratropium (Albuterol/Iprat 2.5/0.5mg 3 Ml Ampul.Neb) 3 ml INHALE RQ6H WHILE AWAKE [facility] Last Admin: 07/29/24 07:39 Dose: 3 ml Documented By: LISSA Benzonatate (Benzonatate 100 Mg Capsule) 100 mg PO TID PRN PRN Reason: Cough Last Admin: 07/28/24 00:10 Dose: 100 mg Documented By: MARIEL Enoxaparin Sodium (Enoxaparin Sodium 40 Mg/0.4 Ml Syringe) 40 mg SUBCUT Q24H [facility] Last Admin: 07/28/24 17:12 Dose: 40 mg Documented By: SCOTT Escitalopram Oxalate (Escitalopram Oxalate 20 Mg Tablet) 20 mg PO DAILY [facility] Last Admin: 07/28/24 09:13 Dose: 20 mg Documented By: SCOTT Hydromorphone HCl (Hydromorphone Hcl 0.5 Mg/0.5 Ml Syringe) 0.25 mg IVPUSH Q4H PRN; Protocol PRN Reason: Pain, Severe (Pain Scale 7-10) Ceftriaxone Sodium 1 gm/ (Sodium Chloride) 50 mls @ 100 mls/hr IV Q12H [facility] Last Infusion: 07/29/24 04:21 Dose: Infused Documented By: HUBER Azithromycin 500 mg/ Sodium (Chloride) 250 mls @ 125 mls/hr IV Q24H [facility] Last Infusion: 07/28/24 16:10 Dose: Infused Documented By: SCOTT Levalbuterol HCl (Levalbuterol Hcl 1.25 Mg/3 Ml Vial.Neb) 1.25 mg INHALE Q3H PRN PRN Reason: Shortness of Breath/Wheezing Lorazepam (Lorazepam 0.5 Mg Tablet) 0.5 mg PO QID PRN PRN Reason: Anxiety Magnesium Hydroxide (Milk Of Magnesia 30 Ml Oral.Susp) 30 ml PO DAILY PRN PRN Reason: Constipation Methylprednisolone Sodium Succinate (Methylprednisolone Sod Succ 40 Mg/Ml Vial) 40 mg IVPUSH Q12H [facility] Last Admin: 07/29/24 05:04 Dose: 40 mg Documented By: HUBER Nicotine (Nicotine 14 Mg Patch.Td24) 14 mg TRANSDERMA DAILY [facility] Last Admin: 07/28/24 08:26 Dose: Not Given Documented By: SCOTT Non-Admin Reason: Patient Refused Omeprazole (Omeprazole 20 Mg Capsule.) 20 mg PO DAILY@0630 [facility] Last Admin: 07/29/24 05:04 Dose: 20 mg Documented By: HUBER Ondansetron HCl (Ondansetron Hcl 4 Mg/2 Ml Vial) 4 mg IVPUSH Q8H PRN PRN Reason: Nausea and Vomiting Last Admin: 07/28/24 14:14 Dose: 4 mg Documented By: SCOTT Pregabalin (Pregabalin 150 Mg Capsule) 300 mg PO DAILY [facility] Last Admin: 07/28/24 09:13 Dose: 300 mg Documented By: SCOTT Pregabalin (Pregabalin 150 Mg Capsule) 150 mg PO BID@1400,2100 [facility] Last Admin: 07/28/24 20:17 Dose: 150 mg Documented By: HUBER Sodium Chloride (0.9 % Sodium Chloride Flush 3 Ml Syringe) 3 ml IVFLUSH QSHIFT [facility] Last Admin: 07/28/24 20:18 Dose: 3 ml Documented By: HUBER Sucralfate (Sucralfate 1 Gm Tablet) 1 gm PO QID [facility] Last Admin: 07/28/24 20:18 Dose: 1 gm Documented By: HUBER Tamsulosin HCl (Tamsulosin Hcl 0.4 Mg Capsule) 0.8 mg PO DAILY [facility] Last Admin: 07/28/24 09:13 Dose: 0.8 mg Documented By: SCOTT Zolpidem Tartrate (Zolpidem Tartrate 5 Mg Tablet) 10 mg PO BEDTIME PRN PRN Reason: Insomnia Labs 07/28/24 05:59 07/29/24 08:43 Labs: Laboratory Results - last 24 hr 07/27/24 07/28/24 07/28/24 18:44 05:59 08:55 Procalcitonin 0.10 Stl C. cayetanensis PCR Not Detected Stool Rotavirus A PCR Not Detected Stl Adenov F 40/41 PCR Not Detected Stool Astrovirus (PCR) Not Detected Stool Campylobacter PCR Not Detected Stool Cryptosporidium PCR Not Detected Stl Sh Tox Pr E STEC PCR Not Detected Stool E coli O157 PCR Not applicable Stl Enterotoxigenic E PCR Not Detected Stool EPEC (PCR) Not Detected Stool EAEC (PCR) Not Detected Stl E. histolytica PCR Not Detected Stool Giardia Lamblia PCR Not Detected Stl P. shigelloides PCR Not Detected Stool Salmonella PCR Not Detected Stool Sapovirus (PCR) Not Detected Stl Shigella/EIEC PCR Not Detected St Y.enterocolitica PCR Not Detected Stool Vibrio (PCR) Not Detected Stl Vibrio cholerae PCR Not Detected Stl Norovirus GI/GII PCR Not Detected Respiratory Panel Umanzor See Note Adenovirus (Rapid PCR) Not Detected B.pert (TEM-PCR) Not Detected B.parapertussis DNA PCR Not Detected C. pneumoniae DNA (PCR) Not Detected C. difficile Tox B Gene NEGATIVE Coronavirus OC43 (PCR) Not Detected Coronavirus HKU1 (PCR) Not Detected Coronavirus 229E (PCR) Not Detected Coronavirus NL63 (PCR) Not Detected Human Metapneumovir PCR Not Detected Influenza A (RT-PCR) Not Detected Influenza B (RT-PCR) Not Detected M. pneumoniae (PCR) Not Detected Parainfluenza 1 (PCR) Not Detected Parainfluenza 2 (PCR) Not Detected Parainfluenza 3 (PCR) Not Detected Parainfluenza 4 (PCR) Not Detected RSV (PCR) Not Detected Entero/Rhino (PCR) Detected A SARS-CoV-2 RNA (RT-PCR) Not Detected Microbiology Microbiology Results: Microbiology 07/27/24 14:38 Blood Culture - Preliminary Blood - Venous No growth after 24 hours. 07/27/24 14:45 Blood Culture - Preliminary Blood - Venous No growth after 24 hours. Assessment and Plan (1) COPD exacerbation: Status: Acute (2) Acute respiratory failure with hypoxemia: Status: Acute (3) Pneumonia: Status: Acute Plan This is a 68-year-old male with history of COPD, active smoker who presents to the emergency department with 3 day history of increasing shortness of breath and productive cough found to have pneumonia Sepsis due to pneumonia continue IV ceftriaxone, IV azithromycin, started 07/27 Follow blood cultures RPP positive for entero/rhino virus Continue high-flow on Acute COPD exacerbation Due to above Continue systemic steroids, breathing treatments Acute respiratory failure with hypoxia Due to pneumonia and COPD management as above Wean high-flow oxygen as tolerated Hypokalemia Repleted and Resolved Diarrhea stool studies neg could be r/t antibiotics Tobacco dependence Smoking cessation advised NRT elevated troponin likely due to demand from hypoxia no chest pain mood continue citalopram, ativan gerd continue prilosec, carafate BPH/h/o prostate ca continue flomax DVT prophylaxis-Lovenox Attending Dr. Lancaster Code status-full code Requires ongoing stay in the hospital for management of acute respiratory failure requiring antibiotics, steroids, high-flow oxygen and close monitoring of respiratory status Quality Stroke Does the patient have a stroke diagnosis?: No VTE Prior VTE?: No VTE Risk Level:: Medical - moderate - high VTE Device Contraindication: N/A - Device Ordered VTE Drug Contraindication: N/A - Med Ordered
[2024-07-29] MEDS: Sucralfate 1 GM TABLET PO ×4 (09:15→20:50)
[2024-07-29] MEDS: Tamsulosin HCL 0.4 MG CAPSULE 0.8 MG PO (09:15)
[2024-07-29] MEDS: Nicotine 14 MG PATCH.TD24 TRANSDERMA (09:15)
[2024-07-29] MEDS: Escitalopram Oxalate 20 MG TABLET PO (09:15)
[2024-07-29] MEDS: Pregabalin 150 MG CAPSULE 300 MG PO (09:15)
[2024-07-29] MEDS: 0.9 % Sodium Chloride Flush 3 ML SYRINGE IVFLUSH ×2 (09:16→20:50)
[2024-07-29 09:24] LABS: Blood Urea Nitrogen 19 mg/dL (9-16); Calcium 9.4 mg/dL (8.4-10.2); Creatinine Clr Calc Pharmacy 95.6; Estimated Glomerular Filt Rate > 60; Glucose Random 130 mg/dL (60-115)
[2024-07-29 09:43] LABS: Anion Gap 14 (12-20); Carbon Dioxide 27 mmol/L (22-29); Chloride 110 mmol/L (96-108); Potassium 3.9 mmol/L (3.3-5.1); Sodium 147 mmol/L (135-145)
--- NOTE | 2024-07-29 11:01 | MHC.CM.PN ---
Patient is not yet medically cleared for dc (IV Azithromycin, IV Ceftriaxone, IV Solu Medrol); home is the goal and CM will continue to follow.
[2024-07-29] MEDS: Pregabalin 150 MG CAPSULE PO ×2 (13:40→20:50)
[2024-07-29] MEDS: Azithromycin 500 MG in 0.9 % Sodium Chloride 250 ML 125 MG IV (14:04)
[2024-07-29] MEDS: ondansetron HCL 4 MG/2 ML VIAL IVPUSH (15:14)
[2024-07-29] MEDS: Enoxaparin Sodium 40 MG/0.4 ML SYRINGE SUBCUT (17:27)
[2024-07-30] VITALS (13 sets, daily range): BP systolic 128–177; BP diastolic 62–81; PULSE 58–88; RESP 12–20; TEMP 36.2–37.3; O2SAT 95–98
[2024-07-30] MEDS: cefTRIAXone sodium 1 GM in 0.9 % Sodium Chloride 50 ML IV ×2 (01:13→12:43)
[2024-07-30] MEDS: methylPREDNISolone Sod Succ 40 MG/ML VIAL IVPUSH (05:28)
[2024-07-30] MEDS: Omeprazole 20 MG CAPSULE.DR PO (05:29)
[2024-07-30] MEDS: Albuterol/Iprat 2.5/0.5MG 3 ML AMPUL.NEB INHALE ×3 (07:51→20:03)
[2024-07-30] MEDS: Pregabalin 150 MG CAPSULE 300 MG PO (09:26)
[2024-07-30] MEDS: Tamsulosin HCL 0.4 MG CAPSULE 0.8 MG PO (09:26)
[2024-07-30] MEDS: Escitalopram Oxalate 20 MG TABLET PO (09:26)
[2024-07-30] MEDS: Sucralfate 1 GM TABLET PO ×4 (09:26→20:17)
[2024-07-30] MEDS: predniSONE 20 MG TABLET 40 MG PO (09:26)
[2024-07-30] MEDS: Nicotine 14 MG PATCH.TD24 TRANSDERMA (09:26)
[2024-07-30] MEDS: 0.9 % Sodium Chloride Flush 3 ML SYRINGE IVFLUSH ×3 (09:27→20:18)
--- NOTE | 2024-07-30 11:32 | HO.PM.IMPN ---
Subjective Subjective Date of Service: 07/30/24 Interval History: Seen and examined this morning Follow-up for respiratory failure, pneumonia on high flow Review of Systems Review of Systems: Yes all other systems are reviewed and are negative Constitutional Constitutional: Denies chills and Denies fever(s) Cardiovascular Cardiovascular: Denies chest pain, Denies palpitations and Reports dyspnea Respiratory Respiratory: Reports cough and Reports dyspnea Gastrointestinal Gastrointestinal: Denies nausea and Denies vomiting Endocrine Endocrine: Denies palpitations Physical Exam Vital Signs: Vital Signs: Last Vital Signs Temp 97.8 F 07/30/24 08:00 Pulse 64 07/30/24 08:00 Resp 20 07/30/24 08:00 BP 157/70 H 07/30/24 08:00 Pulse Ox 97 07/30/24 08:00 O2 Del Method High Flow Nasal C annula 07/30/24 08:00 O2 Flow Rate 32 07/29/24 19:14 FiO2 31.9 07/29/24 15:33 BMI result Body Mass Index 21.9 Appearing in no acute distress lung sounds are clear to auscultation heart regular rate rhythm, clear S1, S2 positive bowel sounds, abdomen is soft, nontender neuro patient is alert x3, no focal deficits Objective Data Active Medications Acetaminophen (Acetaminophen 325 Mg Tablet) 650 mg PO Q6H PRN PRN Reason: Pain, Mild (Pain Scale 1-3), fever or headache Albuterol/Ipratropium (Albuterol/Iprat 2.5/0.5mg 3 Ml Ampul.Neb) 3 ml INHALE RQ6H WHILE AWAKE [facility] Last Admin: 07/30/24 07:51 Dose: 3 ml Documented By: MARTA Benzonatate (Benzonatate 100 Mg Capsule) 100 mg PO TID PRN PRN Reason: Cough Last Admin: 07/28/24 00:10 Dose: 100 mg Documented By: MARIEL Enoxaparin Sodium (Enoxaparin Sodium 40 Mg/0.4 Ml Syringe) 40 mg SUBCUT Q24H [facility] Last Admin: 07/29/24 17:27 Dose: 40 mg Documented By: RAYMUNDO Escitalopram Oxalate (Escitalopram Oxalate 20 Mg Tablet) 20 mg PO DAILY [facility] Last Admin: 07/30/24 09:26 Dose: 20 mg Documented By: RAYMUNDO Hydromorphone HCl (Hydromorphone Hcl 0.5 Mg/0.5 Ml Syringe) 0.25 mg IVPUSH Q4H PRN; Protocol PRN Reason: Pain, Severe (Pain Scale 7-10) Ceftriaxone Sodium 1 gm/ (Sodium Chloride) 50 mls @ 100 mls/hr IV Q12H [facility] Last Infusion: 07/30/24 01:43 Dose: Infused Documented By: ROMINA Azithromycin 500 mg/ Sodium (Chloride) 250 mls @ 125 mls/hr IV Q24H [facility] Last Infusion: 07/29/24 16:08 Dose: Infused Documented By: RAYMUNDO Levalbuterol HCl (Levalbuterol Hcl 1.25 Mg/3 Ml Vial.Neb) 1.25 mg INHALE Q3H PRN PRN Reason: Shortness of Breath/Wheezing Lorazepam (Lorazepam 0.5 Mg Tablet) 0.5 mg PO QID PRN PRN Reason: Anxiety Magnesium Hydroxide (Milk Of Magnesia 30 Ml Oral.Susp) 30 ml PO DAILY PRN PRN Reason: Constipation Nicotine (Nicotine 14 Mg Patch.Td24) 14 mg TRANSDERMA DAILY [facility] Last Admin: 07/30/24 09:26 Dose: 14 mg Documented By: RAYMUNDO Omeprazole (Omeprazole 20 Mg Capsule.) 20 mg PO DAILY@0630 [facility] Last Admin: 07/30/24 05:29 Dose: 20 mg Documented By: ROMINA Ondansetron HCl (Ondansetron Hcl 4 Mg/2 Ml Vial) 4 mg IVPUSH Q8H PRN PRN Reason: Nausea and Vomiting Last Admin: 07/29/24 15:14 Dose: 4 mg Documented By: RAYMUNDO Prednisone (Prednisone 20 Mg Tablet) 40 mg PO DAILY [facility] Last Admin: 07/30/24 09: Dose: 40 mg Documented By: RAYMUNDO Pregabalin (Pregabalin 150 Mg Capsule) 300 mg PO DAILY [facility] Last Admin: 07/30/24 09:26 Dose: 300 mg Documented By: RAYMUNDO Pregabalin (Pregabalin 150 Mg Capsule) 150 mg PO BID@1400,2100 [facility] Last Admin: 07/29/24 20:50 Dose: 150 mg Documented By: ROMINA Sodium Chloride (0.9 % Sodium Chloride Flush 3 Ml Syringe) 3 ml IVFLUSH QSHIFT [facility] Last Admin: 07/30/24 09:27 Dose: 3 ml Documented By: RAYMUNDO Sucralfate (Sucralfate 1 Gm Tablet) 1 gm PO QID [facility] Last Admin: 07/30/24 09:26 Dose: 1 gm Documented By: RAYMUNDO Tamsulosin HCl (Tamsulosin Hcl 0.4 Mg Capsule) 0.8 mg PO DAILY [facility] Last Admin: 07/30/24 09:26 Dose: 0.8 mg Documented By: RAYMUNDO Zolpidem Tartrate (Zolpidem Tartrate 5 Mg Tablet) 10 mg PO BEDTIME PRN PRN Reason: Insomnia Labs 07/28/24 05:59 07/29/24 08:43 Microbiology Microbiology Results: Microbiology 07/27/24 14:38 Blood Culture - Preliminary Blood - Venous No growth after 48 hours. 07/27/24 14:45 Blood Culture - Preliminary Blood - Venous No growth after 48 hours. Assessment and Plan (1) COPD exacerbation: Status: Acute (2) Acute respiratory failure with hypoxemia: Status: Acute (3) Pneumonia: Status: Acute Plan This is a 68-year-old male with history of COPD, active smoker who presents to the emergency department with 3 day history of increasing shortness of breath and productive cough found to have pneumonia Sepsis due to pneumonia. Sepsis resolved continue IV ceftriaxone, IV azithromycin, started 07/27 neg blood cultures Continue high-flow on , wean as tolerated Acute respiratory failure with hypoxia secondary to pneumonia and acute COPD exacerbation Continue systemic steroids, breathing treatments RPP positive for entero/rhino virus Wean high-flow oxygen as tolerated Hypokalemia Repleted and Resolved Diarrhea stool studies neg could be r/t antibiotics Tobacco dependence Smoking cessation advised NRT elevated troponin likely due to demand from hypoxia no chest pain mood continue citalopram, ativan gerd continue prilosec, carafate BPH/h/o prostate ca continue flomax DVT prophylaxis-Lovenox Attending Dr. Lancaster Code status-full code Requires ongoing stay in the hospital for management of acute respiratory failure requiring antibiotics, steroids, high-flow oxygen and close monitoring of respiratory status Quality Stroke Does the patient have a stroke diagnosis?: No VTE Prior VTE?: No VTE Risk Level:: Medical - moderate - high VTE Device Contraindication: N/A - Device Ordered VTE Drug Contraindication: N/A - Med Ordered
[2024-07-30] MEDS: Azithromycin 500 MG in 0.9 % Sodium Chloride 250 ML 125 MG IV (12:43)
[2024-07-30] MEDS: Pregabalin 150 MG CAPSULE PO ×2 (12:47→20:17)
[2024-07-30] MEDS: Enoxaparin Sodium 40 MG/0.4 ML SYRINGE SUBCUT (16:27)
--- NOTE | 2024-07-30 16:45 | P.CDIM_ITS ---
PROVIDER RESPONSE TEXT: To clarify, the appropriate diagnosis supported by the clinical indicators: Other (explain): very mild and no tx necessary QUERY TEXT: PHYSICIAN'S DOCUMENTATION REQUEST Date of Query: 07/30/2024 12:01 PM EDT Patient Name: Ottoniel Flowers Admit Date: 07/27/2024 Dear Scarlett Arroyo [employer], A review of the medical record indicates additional documentation may be needed. Please review below and update the documentation accordingly. LABS: sodium 147 H fluids Based on the above, is there a diagnosis that correlates with these lab findings: Hypernatremia possible, resolved, suspected etc. Labs indicate a diagnosis of (please specify) Other (explain) Clinically unable to determine (explain) Thank you, Elle Jones, CCS, CDIS Use of terms such as suspected, likely, concern for, or probable (associated with a specific diagnosi s that is being evaluated, monitored, or treated as if it exists) are acceptable and can be coded in the inpatient se tting, when documented at the time of discharge. Please use your independent medical judgment in providing your response. THIS QUERY IS PART OF THE PERMANENT MEDICAL RECORD
[2024-07-31] VITALS (9 sets, daily range): BP systolic 132–160; BP diastolic 64–78; PULSE 66–92; RESP 16–20; TEMP 36.2–36.7; O2SAT 94–100
[2024-07-31] MEDS: cefTRIAXone sodium 1 GM in 0.9 % Sodium Chloride 50 ML IV ×2 (01:08→17:32)
[2024-07-31] MEDS: Omeprazole 20 MG CAPSULE.DR PO (05:33)
[2024-07-31] MEDS: Albuterol/Iprat 2.5/0.5MG 3 ML AMPUL.NEB INHALE ×3 (07:35→19:30)
[2024-07-31] MEDS: Pregabalin 150 MG CAPSULE 300 MG PO (10:14)
[2024-07-31] MEDS: Sucralfate 1 GM TABLET PO ×4 (10:14→20:29)
[2024-07-31] MEDS: predniSONE 20 MG TABLET 40 MG PO (10:14)
[2024-07-31] MEDS: Tamsulosin HCL 0.4 MG CAPSULE 0.8 MG PO (10:14)
[2024-07-31] MEDS: Escitalopram Oxalate 20 MG TABLET PO (10:14)
[2024-07-31] MEDS: Nicotine 14 MG PATCH.TD24 TRANSDERMA (10:15)
[2024-07-31] MEDS: 0.9 % Sodium Chloride Flush 3 ML SYRINGE IVFLUSH ×3 (10:21→20:31)
--- NOTE | 2024-07-31 13:29 | HO.PM.IMPN ---
Subjective Subjective Date of Service: 07/31/24 Interval History: Feels tired, denies shortness of breath complaining of cough productive of yellow phlegm, denies fever, no chills, tolerating diet on 4 L of oxygen, not on home O2. Review of Systems All other system reviewed and are negative Physical Exam Vital Signs: Vital Signs: Last Vital Signs Temp 97.2 F 07/31/24 11:40 Pulse 70 07/31/24 11:40 Resp 20 07/31/24 11:40 BP 154/73 H 07/31/24 11:40 Pulse Ox 97 07/31/24 11:40 O2 Del Method Nasal Cannula 07/31/24 11:40 O2 Flow Rate 3 07/31/24 11:40 FiO2 31.9 07/29/24 15:33 BMI result Body Mass Index 21.9 Const: Other: General resting comfortably in no acute distress. Neck i no JVD. CVS regular rate rhythm, Respiratory lungs bibasilar coarse breath sounds, no wheeze, no crackles Gastrointestinal abdomen soft, nontender, bowel sounds audible, Extremities no edema. Neuro non focal Skin no rash Appropriate affect Objective Data Active Medications Acetaminophen (Acetaminophen 325 Mg Tablet) 650 mg PO Q6H PRN PRN Reason: Pain, Mild (Pain Scale 1-3), fever or headache Albuterol/Ipratropium (Albuterol/Iprat 2.5/0.5mg 3 Ml Ampul.Neb) 3 ml INHALE RQ6H WHILE AWAKE [facility] Last Admin: 07/31/24 07:35 Dose: 3 ml Documented By: CINDY Benzonatate (Benzonatate 100 Mg Capsule) 100 mg PO TID PRN PRN Reason: Cough Last Admin: 07/28/24 00:10 Dose: 100 mg Documented By: MARIEL Enoxaparin Sodium (Enoxaparin Sodium 40 Mg/0.4 Ml Syringe) 40 mg SUBCUT Q24H [facility] Last Admin: 07/30/24 16:27 Dose: 40 mg Documented By: RAYMUNDO Escitalopram Oxalate (Escitalopram Oxalate 20 Mg Tablet) 20 mg PO DAILY [facility] Last Admin: 07/31/24 10:14 Dose: 20 mg Documented By: HOLLIE Hydromorphone HCl (Hydromorphone Hcl 0.5 Mg/0.5 Ml Syringe) 0.25 mg IVPUSH Q4H PRN; Protocol PRN Reason: Pain, Severe (Pain Scale 7-10) Ceftriaxone Sodium 1 gm/ (Sodium Chloride) 50 mls @ 100 mls/hr IV Q12H [facility] Last Infusion: 07/31/24 01:38 Dose: Infused Documented By: ROMINA Azithromycin 500 mg/ Sodium (Chloride) 250 mls @ 125 mls/hr IV Q24H [facility] Last Infusion: 07/30/24 14:48 Dose: Infused Documented By: RAYMUNDO Levalbuterol HCl (Levalbuterol Hcl 1.25 Mg/3 Ml Vial.Neb) 1.25 mg INHALE Q3H PRN PRN Reason: Shortness of Breath/Wheezing Lorazepam (Lorazepam 0.5 Mg Tablet) 0.5 mg PO QID PRN PRN Reason: Anxiety Magnesium Hydroxide (Milk Of Magnesia 30 Ml Oral.Susp) 30 ml PO DAILY PRN PRN Reason: Constipation Nicotine (Nicotine 14 Mg Patch.Td24) 14 mg TRANSDERMA DAILY [facility] Last Admin: 07/31/24 10:15 Dose: 14 mg Documented By: HOLLIE Omeprazole (Omeprazole 20 Mg Capsule.) 20 mg PO DAILY@0630 [facility] Last Admin: 07/31/24 05:33 Dose: 20 mg Documented By: ROMINA Ondansetron HCl (Ondansetron Hcl 4 Mg/2 Ml Vial) 4 mg IVPUSH Q8H PRN PRN Reason: Nausea and Vomiting Last Admin: 07/29/24 15:14 Dose: 4 mg Documented By: RAYMUNDO Prednisone (Prednisone 20 Mg Tablet) 40 mg PO DAILY [facility] Last Admin: 07/31/24 10:14 Dose: 40 mg Documented By: HOLLIE Pregabalin (Pregabalin 150 Mg Capsule) 300 mg PO DAILY [facility] Last Admin: 07/31/24 10:14 Dose: 300 mg Documented By: HOLLIE Pregabalin (Pregabalin 150 Mg Capsule) 150 mg PO BID@1400,2100 [facility] Last Admin: 07/30/24 20:17 Dose: 150 mg Documented By: ROMINA Sodium Chloride (0.9 % Sodium Chloride Flush 3 Ml Syringe) 3 ml IVFLUSH QSHIFT [facility] Last Admin: 07/31/24 10:21 Dose: 3 ml Documented By: HOLLIE Sucralfate (Sucralfate 1 Gm Tablet) 1 gm PO QID [facility] Last Admin: 07/31/24 10:14 Dose: 1 gm Documented By: HOLLIE Tamsulosin HCl (Tamsulosin Hcl 0.4 Mg Capsule) 0.8 mg PO DAILY [facility] Last Admin: 07/31/24 10:14 Dose: 0.8 mg Documented By: HOLLIE Zolpidem Tartrate (Zolpidem Tartrate 5 Mg Tablet) 10 mg PO BEDTIME PRN PRN Reason: Insomnia Labs 07/28/24 05:59 07/29/24 08:43 Assessment and Plan (1) COPD exacerbation: Status: Acute (2) Acute respiratory failure with hypoxemia: Status: Acute (3) Pneumonia: Status: Acute Plan 68-year-old male with history of COPD, active smoker who presents to the emergency department with 3 day history of increasing shortness of breath and productive cough found to have pneumonia Sepsis due to pneumonia. Sepsis resolved continue IV ceftriaxone, IV azithromycin, started 07/27, will transition to by mouth at a.m. neg blood cultures On 4 L of oxygen will wean gradually not on home oxygen, add cough medications Out of bed chair/ambulation as tolerated Acute respiratory failure with hypoxia secondary to pneumonia and acute COPD exacerbation on po steroids, continue breathing treatments RPP positive for entero/rhino virus Wean oxygen as tolerated Hypokalemia Repleted and Resolved Diarrhea stool studies neg could be r/t antibiotics Tobacco dependence Smoking cessation advised NRT elevated troponin likely due to demand from hypoxia no chest pain mood continue citalopram, ativan gerd continue prilosec, carafate BPH/h/o prostate ca continue flomax DVT prophylaxis-Lovenox Code status-full code Requires ongoing stay in the hospital for management of acute respiratory failure requiring antibiotics, steroids, oxygen and close monitoring of respiratory status Quality Stroke Does the patient have a stroke diagnosis?: No VTE Prior VTE?: No VTE Risk Level:: Medical - moderate - high VTE Device Contraindication: N/A - Device Ordered VTE Drug Contraindication: N/A - Med Ordered
[2024-07-31] MEDS: Azithromycin 500 MG in 0.9 % Sodium Chloride 250 ML 125 MG IV (14:54)
[2024-07-31] MEDS: guaiFENesin DM 200/20/10 ML 10 ML SYRUP PO ×2 (15:00→20:30)
[2024-07-31] MEDS: Pregabalin 150 MG CAPSULE PO ×2 (15:32→20:30)
--- NOTE | 2024-07-31 15:43 | MHC.CM.PN ---
Per MD rounds patient is not medically cleared for discharge. He continues to require supplemental O2. Plan is to wean from Oxygen. DC is anticipated tomorrow. CM will follow
[2024-07-31] MEDS: Enoxaparin Sodium 40 MG/0.4 ML SYRINGE SUBCUT (17:31)
[2024-07-31] MEDS: LORazepam 0.5 MG TABLET PO (23:36)
[2024-08-01] VITALS (12 sets, daily range): BP systolic 118–155; BP diastolic 63–76; PULSE 70–96; RESP 16–20; TEMP 36–37.1; O2SAT 89–99
[2024-08-01] MEDS: cefTRIAXone sodium 1 GM in 0.9 % Sodium Chloride 50 ML IV ×2 (00:57→14:26)
[2024-08-01] MEDS: Omeprazole 20 MG CAPSULE.DR PO (06:43)
[2024-08-01] MEDS: Albuterol/Iprat 2.5/0.5MG 3 ML AMPUL.NEB INHALE ×3 (07:59→19:01)
[2024-08-01] MEDS: Escitalopram Oxalate 20 MG TABLET PO (09:24)
[2024-08-01] MEDS: guaiFENesin DM 200/20/10 ML 10 ML SYRUP PO ×3 (09:24→21:21)
[2024-08-01] MEDS: Sucralfate 1 GM TABLET PO ×3 (09:24→21:21)
[2024-08-01] MEDS: Pregabalin 150 MG CAPSULE 300 MG PO (09:24)
[2024-08-01] MEDS: Tamsulosin HCL 0.4 MG CAPSULE 0.8 MG PO (09:24)
[2024-08-01] MEDS: predniSONE 20 MG TABLET 40 MG PO (09:24)
[2024-08-01] MEDS: 0.9 % Sodium Chloride Flush 3 ML SYRINGE IVFLUSH ×2 (09:25→15:01)
[2024-08-01] MEDS: Nicotine 14 MG PATCH.TD24 TRANSDERMA (09:25)
--- NOTE | 2024-08-01 12:44 | MHC.CM.PN ---
Pt requested to see CM, he shared concerns about DC. He said he has no food at home, no clothing, no ride. CM offerred clothing, (he declined), let him know we will arrange a ride for him. CM discussed a referral to [facility] for MOW, he said he has had those and does not like them. Anticipate DC on 08/02/24.
--- NOTE | 2024-08-01 13:43 | P.PNIM_ITS ---
Subjective Subjective Date of Service: 08/01/24 Interval History: Complaining of congested cough and feeling tired/wants to leave the room dark, has been mostly in bed since admission. Lives alone at home, by cooked food. Review of Systems All other system reviewed and are negative Physical Exam 2 Vital Signs: Vital Signs: Last Vital Signs Temp 97.4 F 08/01/24 11:34 Pulse 90 08/01/24 13:25 Resp 18 08/01/24 13:25 BP 133/63 08/01/24 11:34 Pulse Ox 92 08/01/24 11:34 O2 Del Method Room Air 08/01/24 11:34 O2 Flow Rate 2 07/31/24 23:19 FiO2 31.9 07/29/24 15:33 BMI result Body Mass Index 21.9 Const: Other: General resting comfortably in no acute distress. Neck no JVD. CVS regular rate rhythm, Respiratory lungs few expiratory rhonchi, no crackles Gastrointestinal abdomen soft, non tender, bowel sounds audible, Extremities no edema. Neuro non focal Skin no rash Appropriate affect Objective Data Active Medications Acetaminophen (Acetaminophen 325 Mg Tablet) 650 mg PO Q6H PRN PRN Reason: Pain, Mild (Pain Scale 1-3), fever or headache Albuterol/Ipratropium (Albuterol/Iprat 2.5/0.5mg 3 Ml Ampul.Neb) 3 ml INHALE RQ6H WHILE AWAKE [facility]S [facility] 234 BEDS AT THE [facility] Last Admin: 08/01/24 13:23 Dose: 3 ml Documented By: SUZANNE Benzonatate (Benzonatate 100 Mg Capsule) 100 mg PO TID PRN PRN Reason: Cough Last Admin: 07/28/24 00:10 Dose: 100 mg Documented By: MARIEL Enoxaparin Sodium (Enoxaparin Sodium 40 Mg/0.4 Ml Syringe) 40 mg SUBCUT Q24H [facility]S [facility]CLUDE 234 BEDS AT THE [facility] Last Admin: 07/31/24 17:31 Dose: 40 mg Documented By: HOLLIE Escitalopram Oxalate (Escitalopram Oxalate 20 Mg Tablet) 20 mg PO DAILY [facility]CLUDE 234 BEDS AT THE [facility] Last Admin: 08/01/24 09:24 Dose: 20 mg Documented By: ASHER Guaifenesin/Dextromethorphan (Guaifenesin Dm 200/20/10 Ml 10 Ml Syrup) 10 ml PO TID COUNTS INCLUDE 234 BEDS AT THE [facility] Last Admin: 08/01/24 09:24 Dose: 10 ml Documented By: ASHER Hydromorphone HCl (Hydromorphone Hcl 0.5 Mg/0.5 Ml Syringe) 0.25 mg IVPUSH Q4H PRN; Protocol PRN Reason: Pain, Severe (Pain Scale 7-10) Ceftriaxone Sodium 1 gm/ (Sodium Chloride) 50 mls @ 100 mls/hr IV Q12H [facility]S [facility]CLUDE 234 BEDS AT [facility] Last Infusion: 08/01/24 01:27 Dose: Infused Documented By: JAXON Azithromycin 500 mg/ Sodium (Chloride) 250 mls @ 125 mls/hr IV Q24H [facility]S INCLUDE 234 BEDS AT THE [facility] Last Infusion: 07/31/24 16:54 Dose: Infused Documented By: HOLLIE Levalbuterol HCl (Levalbuterol Hcl 1.25 Mg/3 Ml Vial.Neb) 1.25 mg INHALE Q3H PRN PRN Reason: Shortness of Breath/Wheezing Lorazepam (Lorazepam 0.5 Mg Tablet) 0.5 mg PO QID PRN PRN Reason: Anxiety Last Admin: 07/31/24 23:36 Dose: 0.5 mg Documented By: JAXON Magnesium Hydroxide (Milk Of Magnesia 30 Ml Oral.Susp) 30 ml PO DAILY PRN PRN Reason: Constipation Nicotine (Nicotine 14 Mg Patch.Td24) 14 mg TRANSDERMA DAILY [facility] 234 BEDS AT [facility] Last Admin: 08/01/24 09:25 Dose: 14 mg Documented By: ASHER Omeprazole (Omeprazole 20 Mg Capsule.) 20 mg PO DAILY@0630 [facility]S [facility]CLUDE 234 BEDS AT THE [facility] Last Admin: 08/01/24 06:43 Dose: 20 mg Documented By: JAXON Ondansetron HCl (Ondansetron Hcl 4 Mg/2 Ml Vial) 4 mg IVPUSH Q8H PRN PRN Reason: Nausea and Vomiting Last Admin: 07/29/24 15:14 Dose: 4 mg Documented By: RAYMUNDO Prednisone (Prednisone 20 Mg Tablet) 40 mg PO DAILY [facility]CLUDE 234 BEDS AT [facility] Last Admin: 08/01/24 09:24 Dose: 40 mg Documented By: ASHER Pregabalin (Pregabalin 150 Mg Capsule) 300 mg PO DAILY [facility]CLUDE 234 BEDS AT [facility] Last Admin: 08/01/24 09:24 Dose: 300 mg Documented By: ASHER Pregabalin (Pregabalin 150 Mg Capsule) 150 mg PO BID@1400,2100 [facility]S INCLUDE 234 BEDS AT [facility] Last Admin: 07/31/24 20:30 Dose: 150 mg Documented By: JAXON Sodium Chloride (0.9 % Sodium Chloride Flush 3 Ml Syringe) 3 ml IVFLUSH QSHIFT COUNTS INCLUDE 234 BEDS AT THE [facility] Last Admin: 08/01/24 09:25 Dose: 3 ml Documented By: ASHER Sucralfate (Sucralfate 1 Gm Tablet) 1 gm PO QID [facility]S INCLUDE 234 BEDS AT THE [facility] Last Admin: 08/01/24 09:24 Dose: 1 gm Documented By: ASHER Tamsulosin HCl (Tamsulosin Hcl 0.4 Mg Capsule) 0.8 mg PO DAILY [facility] INCLUDE 234 BEDS AT [facility] Last Admin: 08/01/24 09:24 Dose: 0.8 mg Documented By: ASHER Zolpidem Tartrate (Zolpidem Tartrate 5 Mg Tablet) 10 mg PO BEDTIME PRN PRN Reason: Insomnia Labs 07/28/24 05:59 07/29/24 08:43 Assessment and Plan (1) COPD exacerbation: Status: Acute (2) Acute respiratory failure with hypoxemia: Status: Acute (3) Pneumonia: Status: Acute Plan 68-year-old male with history of COPD, active smoker who presents to the emergency department with 3 day history of increasing shortness of breath and productive cough found to have pneumonia Sepsis due to pneumonia. Sepsis resolved Chest x-ray showed patchy right mid and lower lung airspace opacities on IV ceftriaxone, IV azithromycin, started 07/27, last dose today 08/01 . neg blood cultures/ RPP positive for entero/rhino virus Will DC oxygen not on home oxygen, continue cough medications Encourage ambulation Acute respiratory failure with hypoxia secondary to pneumonia and acute COPD exacerbation on po steroids, continue breathing treatments Not on home oxygen Will discharge home on tapering dose of prednisone and cough medication recommend to continue home inhalers. Hypokalemia Repleted and Resolved Mild hyperkalemia will follow BMP encourage by mouth fluids Diarrhea Resolved, stool studies neg could be r/t antibiotics Tobacco dependence Smoking cessation advised NRT elevated troponin likely due to demand from hypoxia no chest pain mood continue citalopram, ativan gerd continue prilosec, carafate BPH/h/o prostate ca continue flomax DVT prophylaxis-Lovenox Code status-full code Requires ongoing stay in the hospital for management of acute respiratory failure requiring antibiotics, steroids, and close monitoring of respiratory status Quality Stroke Does the patient have a stroke diagnosis?: No VTE Prior VTE?: No VTE Risk Level:: Medical - moderate - high VTE Device Contraindication: N/A - Device Ordered VTE Drug Contraindication: N/A - Med Ordered
[2024-08-01] MEDS: Pregabalin 150 MG CAPSULE PO ×2 (14:30→21:21)
[2024-08-01] MEDS: Azithromycin 500 MG in 0.9 % Sodium Chloride 250 ML 125 MG IV (15:00)
[2024-08-01 15:13] LABS: Anion Gap 10 (12-20); Blood Urea Nitrogen 10 mg/dL (9-16); Calcium 9.1 mg/dL (8.4-10.2); Carbon Dioxide 33 mmol/L (22-29); Chloride 105 mmol/L (96-108); Creatinine Clr Calc Pharmacy 87.9; Estimated Glomerular Filt Rate > 60; Glucose Random 135 mg/dL (60-115); Sodium 145 mmol/L (135-145)
[2024-08-01] MEDS: Potassium Chloride ER 20 MEQ TAB.ER.PRT 40 MEQ PO (16:16)
[2024-08-01] MEDS: Enoxaparin Sodium 40 MG/0.4 ML SYRINGE SUBCUT (17:58)
--- NOTE | 2024-08-01 18:20 | PC.NURSE ---
IV access to [place] lower arms outdated , painful , removed by RN, no discomfort to the injection site after IV removed . Attempted x 2 IV access to left lower arm with no success. pt stated that he wants some rest from IV injections at this time . He is agreeable to get IV later on tonight
[2024-08-01] MEDS: LORazepam 0.5 MG TABLET PO (23:33)
[2024-08-01] MEDS: Acetaminophen 325 MG TABLET 650 MG PO (23:33)
[2024-08-01] MEDS: HYDROmorphone HCl 0.5 MG/0.5 ML SYRINGE 0.25 MG IVPUSH (23:34)
[2024-08-02] MEDS: cefTRIAXone sodium 1 GM in 0.9 % Sodium Chloride 50 ML IV (01:46)
[2024-08-02 03:21] VITALS: BP 138/65; PULSE 75; RESP 20; TEMP 36.4; O2SAT 93
[2024-08-02] MEDS: Omeprazole 20 MG CAPSULE.DR PO (06:12)
[2024-08-02 06:53] VITALS: BP 158/73; PULSE 71; RESP 18; TEMP 36.7; O2SAT 94
[2024-08-02 08:28] LABS: Potassium 2.9 mmol/L (3.3-5.1)
[2024-08-02] MEDS: 0.9 % Sodium Chloride Flush 3 ML SYRINGE IVFLUSH (08:58)
[2024-08-02] MEDS: predniSONE 20 MG TABLET 40 MG PO (08:58)
[2024-08-02] MEDS: Escitalopram Oxalate 20 MG TABLET PO (08:58)
[2024-08-02] MEDS: Tamsulosin HCL 0.4 MG CAPSULE 0.8 MG PO (08:58)
[2024-08-02] MEDS: Pregabalin 150 MG CAPSULE 300 MG PO (08:58)
[2024-08-02] MEDS: Sucralfate 1 GM TABLET PO ×2 (08:58→11:29)
[2024-08-02] MEDS: guaiFENesin DM 200/20/10 ML 10 ML SYRUP PO ×2 (08:59→14:14)
--- NOTE | 2024-08-02 09:30 | PM.DS ---
DS: Providers Provider Date of Service: 08/02/24 Date of admission: 07/27/24 17:40 Date of discharge: 08/02/24 Primary care physician: Ras Benavidez III, MD DS: Diagnosis Discharge Diagnosis (1) COPD exacerbation: Status: Acute (2) Acute respiratory failure with hypoxemia: Status: Acute (3) Pneumonia: Status: Acute (4) Sepsis: Status: Acute DS: Summary Hospital Course Hospital Course: HPI From admission H&P: This is a 68-year-old male with history of COPD who presents to the emergency department with complaints of shortness of breath. History is limited due to dyspnea. Patient states that he has had shortness of breath for the past 2-3 days and then associated productive cough. He denies any associated fever or chills. He denies any recent sick contacts. In the emergency department he was tachycardic and tachypneic required IV fentanyl and transitioned from nasal cannula to high-flow oxygen. Chest x-ray showed patchy right mid/lower lung airspace opacities. Influenza, RSV, COVID-19 PCR negative. He received breathing treatments, Solu-Medrol, antibiotics and remained persistently tachypneic and hypoxic and as above had to be transitioned to high-flow oxygen. We will be admitted for further management of acute COPD exacerbation and pneumonia. Hospital Course: Patient presented with respiratory symptoms and was nose with acute COPD exacerbation, sepsis due to pneumonia and acute respiratory failure with hypoxia. He was treated with broad-spectrum IV antibiotics, systemic steroids, nebulized bronchodilators and supplemental oxygen. He tested positive for entero/rhino virus as well. Over the course of 6 days in the hospital, the patient had improvement in his symptoms. He has been weaned to room air. His blood cultures are negative. He remains afebrile and his white blood cell count has resolved. He will be transitioned a short prednisone taper and has completed his antibiotic course in the hospital. Pt did have hypoK which require repletion on multiple days. Mag was checked and normal; Will be d/c on KCl 20meq x 10 days and have repeat chem checked in a few days after dischage. Time Attestation Discharge Coordination Time (in mins): 45 Quality: Safe Use of Opioids Does Pt have an Active Cancer Diagnosis on the Problem List?: No Quality: Stroke Does the patient have a stroke diagnosis?: No Physical Exam Vital Signs: Vital Signs: Last Vital Signs Temp 98.0 F 08/02/24 06:53 Pulse 71 08/02/24 06:53 Resp 18 08/02/24 06:53 BP 158/73 H 08/02/24 06:53 Pulse Ox 94 08/02/24 06:53 O2 Del Method Room Air 08/02/24 06:53 O2 Flow Rate 2 07/31/24 23:19 FiO2 31.9 07/29/24 15:33 BMI result Body Mass Index 21.9 DS: Data Data Completed and Pending Labs on day of discharge: Laboratory Results - last 24 hr 08/01/24 08/01/24 08/02/24 14:42 14:48 06:07 Hold Purple Top SEE NOTE Sodium 145 Potassium 3.0 L D 2.9 L* Chloride 105 Carbon Dioxide 33 H Anion Gap 10 L BUN 10 Creatinine 0.74 Estim Creat Clear Calc 87.9 Estimated GFR > 60 Random Glucose 135 H Calcium 9.1 Discharge Plan Discharge Anticipated Discharge Date/Time: 08/02/24 09:29 Patient Disposition: Home, Self-Care Discharge Diagnosis: pneumonia/copd Referrals: Ras Benavidez III, MD [Primary Care Provider] - 1 Week Discharge Medications: New dextromethorphan-guaifenesin 10-100 mg/5 mL Syrup 10 ml PO TID Qty: 237 0RF Rx Instructions: Take cough medication for 5 days prednisone 10 mg tablet 10 mg PO DIRECTED Qty: 30 0RF Rx Instructions: see taper instructions; 40 mg Daily x3 days, 30 mg daily x3 days, 20 mg daily x3 days, 10 mg daily x3 days potassium chloride 20 mEq tablet extended release 20 meq PO DAILY Qty: 10 0RF Continued omeprazole 20 mg capsule,delayed release(DR/EC) 20 mg PO DAILY@0630 pregabalin 150 mg capsule 300 mg PO DAILY pregabalin 150 mg capsule 150 mg PO BID@1400,2100 sucralfate 1 gram tablet 1 g PO QID tamsulosin 0.4 mg capsule 0.8 mg PO DAILY citalopram 40 mg Tablet 40 mg PO DAILY lorazepam 0.5 mg Tablet 0.5 mg PO QID PRN (Reason: Anxiety) zolpidem 10 mg Tablet 10 mg PO BEDTIME PRN (Reason: Insomnia) albuterol sulfate 90 mcg/actuation Hfa Aerosol Inhaler 2 puff INHALATION QID PRN (Reason: Shortness Of Breath Or Wheezing) nicotine (polacrilex) 2 mg Mini Lozenge 2 mg BUCCAL Q2H PRN (Reason: Nicotine Cravings) Rx Instructions: DNE 20 PIECES A DAY methylphenidate HCl 5 mg Tablet 15 mg PO DAILY Discharge Orders: Discharge Order (Routine); Ordered 08/02/24 Ordered By: Quinn Lancaster Diet: Advance to usual diet Activity on Discharge: As tolerated Stand Alone Forms: Patient Portal Discharge page Print Language: [place] Other Ambulatory Orders: Basic Metabolic Panel (Routine) Timeframe: [id number] Facility: [facility] - Location: Laboratory Ordered By: Quinn Lancaster Care Plan Goals: To stay healthy and out of the hospital. Health Concerns: See discharge summary Plan of Treatment: see discharge summary Assessment: see discharge summary
[2024-08-02] MEDS: Potassium Chloride/H20 10 MEQ/100 ML PIGGYBACK 100 MEQ IV ×2 (09:53→11:28)
[2024-08-02] MEDS: Potassium Chloride ER 20 MEQ TAB.ER.PRT 40 MEQ PO (09:53)
[2024-08-02 11:35] VITALS: BP 141/67; PULSE 90; RESP 18; TEMP 37.1; O2SAT 93
--- NOTE | 2024-08-02 12:29 | MHC.CM.PN ---
Second IMM given 08/02. Pt is medically cleared for discharge home self-care today, pt will transport home via [facility] [place] [place] shuttle.
[2024-08-02 13:40] VITALS: PULSE 90; RESP 16; O2SAT 94
[2024-08-02] MEDS: Albuterol/Iprat 2.5/0.5MG 3 ML AMPUL.NEB INHALE (13:40)
[2024-08-02 13:43] LABS: Potassium 3.3 mmol/L (3.3-5.1)
[2024-08-02] MEDS: Pregabalin 150 MG CAPSULE PO (14:14)
[2024-08-03 10:58] LABS: Legionella Ag Urine Not Detected (Not Detected)
== END 2024-08-02 15:03 | disposition home or self-care (01) | DRG 871 ==
LOC: HO.ED 15:11 → HO.EDOVER 17:48 → HO.IMC 19:29
PROVIDERS: Hospitalist; Nurse Practitioner Acute Care; Physician Assistant; Admitting Provider Physician Assistant Medical; Emergency Provider Emergency Medicine; PCP Internal Medicine; Visit Provider Family Medicine
DX: A41.9 Sepsis, unspecified organism (principal); J18.9 Pneumonia, unspecified organism; J96.01 Acute respiratory failure with hypoxia; J44.0 Chronic obstructive pulmonary disease with (acute) lower respiratory infection; J44.1 Chronic obstructive pulmonary disease with (acute) exacerbation; K52.1 Toxic gastroenteritis and colitis; E87.6 Hypokalemia; K21.9 Gastro-esophageal reflux disease without esophagitis; B97.89 Other viral agents as the cause of diseases classified elsewhere; B97.10 Unspecified enterovirus as the cause of diseases classified elsewhere; N40.0 Benign prostatic hyperplasia without lower urinary tract symptoms; F39 Unspecified mood [affective] disorder; Z85.46 Personal history of malignant neoplasm of prostate; T36.95XA Adverse effect of unspecified systemic antibiotic, initial encounter; F17.210 Nicotine dependence, cigarettes, uncomplicated; Z71.6 Tobacco abuse counseling; Z91.040 Latex allergy status; Z20.822 Contact with and (suspected) exposure to COVID-19; Z88.0 Allergy status to penicillin; Z79.899 Other long term (current) drug therapy
CPT/HCPCS: 0241U; 36415; 71045; 80048; 80053; 82803; 83605; 83735; 83880; 84132; 84145; 84484; 85007; 85025; 85027; 87040; 87449; 87493; 87507; 87633; 93005; 94640; 99285; J0456; J0696; J1170; J1650; J1940; J2405; J2919; J3010; J3480

== ENCOUNTER → 2024-07-27 17:40 | Outpatient (BNV) | payer MEDICARE, MEDICAID, SELFPAY | PROVIDERS: Admitting Provider Physician Assistant Medical; Emergency Provider Emergency Medicine; PCP Internal Medicine; Visit Provider Physician Assistant Medical | DX: A41.9 Sepsis, unspecified organism (principal); J44.1 Chronic obstructive pulmonary disease with (acute) exacerbation; J96.01 Acute respiratory failure with hypoxia; J18.9 Pneumonia, unspecified organism | CPT/HCPCS: 99223; 99232; 99233; 99239 ==

== ENCOUNTER 2024-12-17 13:53 | Inpatient (IN) | payer MEDICARE, MEDICAID, SELFPAY ==
[2024-12-17] VITALS (8 sets, daily range): BP systolic 100–165; BP diastolic 47–71; PULSE 85–115; RESP 20–30; TEMP 36.6–38.2; O2SAT 90–98; BMI 23.5
--- NOTE | ~2024-12-17 | XR_ITS ---
EXAMINATION: XR CHEST CLINICAL INFORMATION: hypoxia COMPARISON: 07/27/2024. TECHNIQUE: Frontal view of the chest was obtained. FINDINGS: The cardiac, hilar, and mediastinal contours are normal. Aortic mural calcification. Subtle opacities right mid and lower lung, unchanged from the previous, likely reflecting chronic abnormalities. Stable pulmonary hyperaeration and likely underlying COPD. Generalized mild increase in the interstitial markings. No definite active lung disease. No effusion or pneumothorax. No focal osseous or soft tissue abnormalities. XR/XR chest 1V IMPRESSION: 1. Subtle patchy opacities right mid and lower lung, appear chronic in nature and are unchanged from the prior exam. 2. Otherwise, hyperaeration without superimposed active disease. Electronically signed by: Emerson David MD 12/17/2024 03:31 PM DORINA
--- NOTE | 2024-12-17 14:10 | ED_ITS ---
HPI - SOB/Dyspnea General Stated Complaint: SOB x1 day, hx COPD Time Seen by Provider: 12/17/24 14:10 Source: patient and EMS Mode of arrival: EMS Limitations: no limitations History of Present Illness ED Provider: JOSELYN AMARO PA-C HPI Narrative: 69 year old male with pmhx significant for COPD/asthma presents to the ED today for evaluation of Related Data Home Medications ?Medication ?Instructions ?Recorded ?Confirmed omeprazole 20 mg capsule,delayed 20 mg PO DAILY@0630 07/27/24 07/27/24 release pregabalin 150 mg capsule 150 mg PO BID@1400,2100 07/27/24 07/28/24 pregabalin 150 mg capsule 300 mg PO DAILY 07/27/24 07/27/24 sucralfate 1 gram tablet 1 g PO QID 07/27/24 07/27/24 tamsulosin 0.4 mg capsule 0.8 mg PO DAILY 07/27/24 07/27/24 albuterol sulfate 90 mcg/actuation 2 puff inhalation QID PRN 07/28/24 07/28/24 aerosol inhaler Shortness Of Breath Or Wheezing citalopram 40 mg tablet 40 mg PO DAILY 07/28/24 07/28/24 lorazepam 0.5 mg tablet 0.5 mg PO QID PRN Anxiety 07/28/24 07/28/24 methylphenidate HCl 5 mg tablet 15 mg PO DAILY 07/28/24 07/28/24 nicotine (polacrilex) 2 mg buccal 2 mg buccal Q2H PRN Nicotine 07/28/24 07/28/24 mini lozenge Cravings zolpidem 10 mg tablet 10 mg PO BEDTIME PRN Insomnia 07/28/24 07/28/24 Previous Rx's ?Medication ?Instructions ?Recorded dextromethorphan-guaifenesin 10 10 ml PO TID #237 mL 08/01/24 mg-100 mg/5 mL oral syrup prednisone 10 mg tablet 10 mg PO DIRECTED #30 tabs 08/01/24 potassium chloride 20 mEq 20 meq PO DAILY #10 tabs 08/02/24 tablet,extended release Allergies Allergy/AdvReac Type Severity Reaction Status Date / Time Penicillins [PENICILLINS] Allergy Intermediate UPSET Verified 07/27/24 11:54 STOMACH acetaminophen [ACETAMINOPHEN] Allergy Unknown DIARRHEA Verified 07/27/24 11:54 codeine [CODEINE] Allergy Unknown NAUSEA & Verified 07/27/24 11:54 VOMITING latex [LATEX] Allergy Unknown RASH Verified 07/27/24 11:54 [facility] Past Medical History Attestation statement: The following information was validated with the patient. Source: old records reviewed and nursing notes reviewed Medical History COPD exacerbation Acute respiratory failure with hypoxemia Pneumonia COPD (chronic obstructive pulmonary disease) Social History Social History Household Members: None Housing: Other Housing Other:: multi family Do you presently have visiting nurse or other home services: No Patient Tobacco Use Status: Current everyday Tobacco user Tobacco use type: Cigarette Cigarettes Per Day: 20 Years Smoked: 40 e-Cigarette/Vaping Use: Never Used Second Hand Smoke Exposure: No Substance Use Type: Marijuana service: Yes Discharge Plan Discharge Prescriptions: No Action omeprazole 20 mg capsule,delayed release(DR/EC) 20 mg PO DAILY@0630 pregabalin 150 mg capsule 300 mg PO DAILY pregabalin 150 mg capsule 150 mg PO BID@1400,2100 sucralfate 1 gram tablet 1 g PO QID tamsulosin 0.4 mg capsule 0.8 mg PO DAILY citalopram 40 mg Tablet 40 mg PO DAILY lorazepam 0.5 mg Tablet 0.5 mg PO QID PRN (Reason: Anxiety) zolpidem 10 mg Tablet 10 mg PO BEDTIME PRN (Reason: Insomnia) albuterol sulfate 90 mcg/actuation Hfa Aerosol Inhaler 2 puff INHALATION QID PRN (Reason: Shortness Of Breath Or Wheezing) nicotine (polacrilex) 2 mg Mini Lozenge 2 mg BUCCAL Q2H PRN (Reason: Nicotine Cravings) Rx Instructions: DNE 20 PIECES A DAY methylphenidate HCl 5 mg Tablet 15 mg PO DAILY dextromethorphan-guaifenesin 10-100 mg/5 mL Syrup 10 ml PO TID Qty: 237 0RF Rx Instructions: Take cough medication for 5 days prednisone 10 mg tablet 10 mg PO DIRECTED Qty: 30 0RF Rx Instructions: see taper instructions; 40 mg Daily x3 days, 30 mg daily x3 days, 20 mg daily x3 days, 10 mg daily x3 days potassium chloride 20 mEq tablet extended release 20 meq PO DAILY Qty: 10 0RF Print Language: Slovak
--- NOTE | 2024-12-17 14:31 | ECG_ITS ---
Test Reason : Sepsis Blood Pressure : */* mmHG Vent. Rate : 113 BPM Atrial Rate : 113 BPM P-R Int : 118 ms QRS Dur : 100 ms QT Int : 336 ms P-R-T Axes : 78 29 85 degrees QTcB Int : 460 ms Sinus tachycardia Otherwise normal ECG When compared with ECG of 27-Jul-2024 13:13, No significant change was found Referred By: Wilbert Helton Electronically Signed By: MASON ROBISON MD
--- NOTE | 2024-12-17 14:32 | ED.GENADULT ---
HPI - General Adult General Chief complaint: Dyspnea Stated complaint: SOB x1 day, hx COPD Time Seen by Provider: 12/17/24 14:10 Source: patient Mode of arrival: EMS Limitations: no limitations History of Present Illness HPI narrative: This is a 69-year-old man with a past medical history of non oxygen dependent COPD who is BIBEMS for evaluation of dyspnea and cough. Patient reports he has been sick for the last several days. Patient reports subjective fevers as well as chills. He states also having 1-2 loose nonbloody stools per day. He states decreased appetite. He states no nausea or vomiting. Patient reports cough with green/brown sputum production. He states increased cough frequency. He states no trauma or falls. He states no chest pain. He states no urinary symptoms. He states no leg swelling or pain. Related Data Home Medications ?Medication ?Instructions ?Recorded ?Confirmed omeprazole 20 mg capsule,delayed 20 mg PO DAILY@0630 07/27/24 07/27/24 release pregabalin 150 mg capsule 150 mg PO BID@1400,2100 07/27/24 07/28/24 pregabalin 150 mg capsule 300 mg PO DAILY 07/27/24 07/27/24 sucralfate 1 gram tablet 1 g PO QID 07/27/24 07/27/24 tamsulosin 0.4 mg capsule 0.8 mg PO DAILY 07/27/24 07/27/24 albuterol sulfate 90 mcg/actuation 2 puff inhalation QID PRN 07/28/24 07/28/24 aerosol inhaler Shortness Of Breath Or Wheezing citalopram 40 mg tablet 40 mg PO DAILY 07/28/24 07/28/24 lorazepam 0.5 mg tablet 0.5 mg PO QID PRN Anxiety 07/28/24 07/28/24 methylphenidate HCl 5 mg tablet 15 mg PO DAILY 07/28/24 07/28/24 nicotine (polacrilex) 2 mg buccal 2 mg buccal Q2H PRN Nicotine 07/28/24 07/28/24 mini lozenge Cravings zolpidem 10 mg tablet 10 mg PO BEDTIME PRN Insomnia 07/28/24 07/28/24 Previous Rx's ?Medication ?Instructions ?Recorded dextromethorphan-guaifenesin 10 10 ml PO TID #237 mL 09/26/24 mg-100 mg/5 mL oral syrup prednisone 10 mg tablet 10 mg PO DIRECTED #30 tabs 08/01/24 potassium chloride 20 mEq 20 meq PO DAILY #10 tabs 08/02/24 tablet,extended release Allergies Allergy/AdvReac Type Severity Reaction Status Date / Time Penicillins [PENICILLINS] Allergy Intermediate UPSET Verified 12/17/24 14:18 STOMACH acetaminophen [ACETAMINOPHEN] Allergy Unknown DIARRHEA Verified 07/27/24 11:54 codeine [CODEINE] Allergy Unknown NAUSEA & Verified 07/27/24 11:54 VOMITING latex [LATEX] Allergy Unknown RASH Verified 07/27/24 11:54 [facility] Past Medical History Medical History COPD exacerbation Acute respiratory failure with hypoxemia Pneumonia COPD (chronic obstructive pulmonary disease) Social History Social History Household Members: None Housing: Other Housing Other:: multi family Do you presently have visiting nurse or other home services: No Patient Tobacco Use Status: Current everyday Tobacco user Tobacco use type: Cigarette Cigarettes Per Day: 20 Years Smoked: 40 Smoked in Last 30 Days: Yes e-Cigarette/Vaping Use: Never Used Second Hand Smoke Exposure: No Use of substances other than those prescribed or required for medical reasons: Yes Substance Use Type: Marijuana service: Yes Physical Exam ED Vital Signs: Vital Signs - 24 hr 12/17/24 14:11 12/17/24 14:39 12/17/24 15:01 Temperature 98.7 F Pulse Rate 114 H 105 H 115 H Respiratory Rate 30 H 22 H 30 H Blood Pressure 141/71 H 114/52 L Pulse Oximetry 90 L 93 Oxygen Delivery Method Room Air Aerosol Mask Oxygen Flow Rate 12/17/24 15:08 12/17/24 15:59 Temperature 100.8 F H Pulse Rate 105 H Respiratory Rate 26 H Blood Pressure 112/47 L Pulse Oximetry 96 Oxygen Delivery Method Nasal Cannula Oxygen Flow Rate 2 BMI result Body Mass Index 23.5 Gen: NAD, AOx3 HEENT: NCAT, EOMI, normal conjunctiva CV: Tachycardic rate, regular rhythm Pulm: Diffuse expiratory wheezes, increased work of breathing, no respiratory distress GI: Soft, NTND Neuro: Grossly non focal Medications Administered Generic Name Dose Route Start Last Admin Trade Name Freq PRN Reason Stop Dose Admin Azithromycin 500 mg/ Sodium 250 mls @ 125 mls/hr 12/17/24 14:24 12/17/24 14:55 Chloride IV 12/17/24 16:23 125 mls/hr ONCE ONE Administration Discontinued Medications Generic Name Dose Route Start Last Admin Trade Name Dominick PRN Reason Stop Dose Admin Acetaminophen 975 mg 12/17/24 15:10 12/17/24 15:58 Acetaminophen 325 Mg Tablet PO 12/17/24 15:11 975 mg ONCE ONE Administration Albuterol Sulfate 5 mg/ 0 mg 12/17/24 14:35 12/17/24 14:38 Albuterol/Ipratropium 3 ml INHALE 12/17/24 14:36 1 each ONCE ONE Administration Vancomycin HCl 1,500 mg/ 500 mls @ 333.333 mls/hr 12/17/24 14:23 12/17/24 14:58 Sodium Chloride IV 12/17/24 15:52 333.33 mls/hr ONCE ONE Administration Cefepime HCl 1 gm/ Sodium 50 mls @ 100 mls/hr 12/17/24 14:23 12/17/24 15:58 Chloride IV 12/17/24 14:52 Infused ONCE ONE Infusion Lactated Ringer's 2,100 mls @ 2,100 mls/hr 12/17/24 14:25 12/17/24 15:58 Lr 30 ml/kg infuse over 1 hr (2100 ml) 12/17/24 15:24 Infused IV Infusion .Q1H ONE Methylprednisolone Sodium Succinate 125 mg 12/17/24 14:23 12/17/24 14:44 Methylprednisolone Sod Succ 125 Mg/2 Ml Vial IVPUSH 12/17/24 14:24 125 mg ONCE ONE Administration Medical Decision Making Medical Decision Making [facility] Narrative: 1432 - patient arrives hypoxic, tachypneic and tachycardic meeting SIRS criteria. Suspected respiratory source of infection and thus meets sepsis 0.2. Sepsis treatment as initiated. Patient is provided 30cc/kg IV fluid bolus, azithromycin, cefepime and vancomycin. He is also noted to have diffuse expiratory wheezes consistent with bronchospasm in concerning for COPD exacerbation. He is provided nebulized bronchodilator therapies as well as Solu-Medrol. Patient provide Tylenol for fever. Differential diagnosis includes, but is not limited to viral URI, COPD exacerbation, sepsis, pneumonia, pneumothorax. I reviewed the patient's labs, EKG, chest x-ray and viral testing as below. I discussed the patient's case and management with admitting hospitalist and patient is accepted for further workup and management of acute hypoxic respiratory failure. Admission/Observation Consideration of admission/observation: Escalation of care including admission/observation considered Consult Healthcare Provider Management of the patient was discussed with: Hospitalist Lab Data MDM Lab Attestation statement: I reviewed the patient's lab results. I independently reviewed and interpreted the patient's labs including CBC, coagulation studies, venous blood gas, metabolic panel, which are benign and reassuring. 12/17/24 14:32 12/17/24 14:32 Labs: Lab Results 12/17/24 12/17/24 12/17/24 Range/Units 14:32 14:39 15:20 WBC 6.2 (4.8-10.8) X10*3/uL RBC 4.15 L (4.60-5.80) X10*6/uL Hgb 13.1 L (14.0-18.0) g/dl Hct 38.9 L (42.0-52.0) % MCV 93.7 (80.0-98.0) fL MCH 31.6 (27.0-33.0) pg MCHC 33.7 (31.0-36.0) g/dl RDW 14.6 (11.0-16.0) % Plt Count 227 (160-400) X10*3/uL MPV 10.3 (9.4-12.4) fL Immature Gran % (Auto) 0.5 H (0.0-0.4) % Neut % (Auto) 71.4 (45-73) % Lymph % (Auto) 18.0 L (20-40) % [place] % (Auto) 9.9 (2-11) % Eos % (Auto) 0.0 (0-4) % Baso % (Auto) 0.2 (0-2) % Lymph # (Auto) 1.1 L (1.2-4.9) X10*3/uL [place] # (Auto) 0.6 (0.1-1.2) X10*3/uL Eos # (Auto) 0.0 (0.0-0.4) X10*3/uL Baso # (Auto) 0.0 (0.0-0.2) X10*3/uL Abs Immat Gran (auto) 0.03 (0.00-0.03) X10*3/uL Absolute Neuts (auto) 4.4 (2.0-8.3) x10*3/uL Absolute Nucleated RBC 0.000 (0.0-0.012) X10*3/uL Nucleated RBC % (auto) 0.0 (0.0-0.2) /100WBC PT 12.8 H (10.9-12.4) SEC INR 1.1 (0.9-1.1) APTT 39.7 H (26.0-36.8) SEC VBG pH Cancelled 7.42 VBG pCO2 Cancelled 36 VBG pO2 Cancelled 48 VBG HCO3 Cancelled 24 VBG O2 Saturation Cancelled 83.0 VBG Base Excess Cancelled 0.2 Sodium 140 (135-145) mmol/L Potassium 3.8 (3.3-5.1) mmol/L Chloride 108 (96-108) mmol/L Carbon Dioxide 21 L (22-29) mmol/L Anion Gap 15 (12-20) BUN 8 L (9-16) mg/dL Creatinine 0.74 (0.5-1.4) mg/dL Estim Creat Clear Calc 93.7 Estimated GFR > 60 Random Glucose 100 (60-115) mg/dL Lactic Acid 1.6 (0.5-2.0) mmol/L Calcium 9.1 (8.4-10.2) mg/dL Total Bilirubin 0.2 (0.0-1.0) mg/dL Direct Bilirubin < 0.2 (0.0-0.5) mg/dL AST 31 (5-37) U/L ALT 13 (0-40) U/L Total Protein 6.6 (6.5-8.0) g/dL Albumin 4.0 (3.5-5.0) g/dL Influenza Type A (PCR) POSITIVE A (Negative) Influenza Type B (PCR) NEGATIVE (Negative) RSV RNA Qual (PCR) NEGATIVE (Negative) SARS-CoV-2 RNA (RT-PCR) NEGATIVE (Negative) Independent Interpretation I performed an independent interpretation of an: EKG and Plain X-Ray Interpretation: I independently reviewed and interpreted the patient's, demonstrates patchy opacities in the right mid and lower lung concerning for pneumonia in the setting of fever, sputum production and hypoxia. Chest x-ray shows no pneumothorax or pleural effusion. I independently reviewed and interpreted the patient's EKG, which demonstrates sinus tachycardia at 113 beats per minute, LA 118, QRS 100, no STEMI. Radiology Impression Discussion of test interpretation with radiology: I have reviewed the radiologist's reading. Radiologist Impression: XR/XR chest 1V IMPRESSION: 1. Subtle patchy opacities right mid and lower lung, appear chronic in nature and are unchanged from the prior exam. 2. Otherwise, hyperaeration without superimposed active disease. Electronically signed by: Emerson David MD 12/17/2024 03:31 PM [facility] Dictated By: Emerson David MD Signed By: <Electronically signed by Emerson David MD in OV> 12/17/24 1531 Discharge Plan Discharge Clinical Impression: Community acquired pneumonia, Sepsis, COPD exacerbation, Influenza Patient Disposition: Admitted As Inpatient Prescriptions: No Action omeprazole 20 mg capsule,delayed release(DR/EC) 20 mg PO DAILY@0630 pregabalin 150 mg capsule 300 mg PO DAILY pregabalin 150 mg capsule 150 mg PO BID@1400,2100 sucralfate 1 gram tablet 1 g PO QID tamsulosin 0.4 mg capsule 0.8 mg PO DAILY citalopram 40 mg Tablet 40 mg PO DAILY lorazepam 0.5 mg Tablet 0.5 mg PO QID PRN (Reason: Anxiety) zolpidem 10 mg Tablet 10 mg PO BEDTIME PRN (Reason: Insomnia) albuterol sulfate 90 mcg/actuation Hfa Aerosol Inhaler 2 puff INHALATION QID PRN (Reason: Shortness Of Breath Or Wheezing) nicotine (polacrilex) 2 mg Mini Lozenge 2 mg BUCCAL Q2H PRN (Reason: Nicotine Cravings) Rx Instructions: DNE 20 PIECES A DAY methylphenidate HCl 5 mg Tablet 15 mg PO DAILY dextromethorphan-guaifenesin 10-100 mg/5 mL Syrup 10 ml PO TID Qty: 237 0RF Rx Instructions: Take cough medication for 5 days prednisone 10 mg tablet 10 mg PO DIRECTED Qty: 30 0RF Rx Instructions: see taper instructions; 40 mg Daily x3 days, 30 mg daily x3 days, 20 mg daily x3 days, 10 mg daily x3 days potassium chloride 20 mEq tablet extended release 20 meq PO DAILY Qty: 10 0RF Print Language: Citizen Of [place]
[2024-12-17] MEDS: Albuterol Sulfate 5 MG, Albuterol/Iprat 2.5/0.5MG 3 ML 3 ML INHALE (14:38)
[2024-12-17 14:40] LABS: MANUAL DIFF FLAG NO
[2024-12-17 14:42] LABS: Basophils Percent Auto 0.2 % (0-2); Hematocrit 38.9 % (42.0-52.0); Hemoglobin 13.1 g/dl (14.0-18.0); Imm Gran Abs Auto 0.03 X10*3/uL (0.00-0.03); Imm Gran Pct Auto 0.5 % (0.0-0.4); Lymphocytes Absolute Auto 1.1 X10*3/uL (1.2-4.9); Mean Corpuscular HGB Conc 33.7 g/dl (31.0-36.0); Mean Corpuscular Hemoglobin 31.6 pg (27.0-33.0); Mean Corpuscular Volume 93.7 fL (80.0-98.0); Mean Platelet Volume 10.3 fL (9.4-12.4); Monocytes Absolute Auto 0.6 X10*3/uL (0.1-1.2); Monocytes Percent Auto 9.9 % (2-11); Neutrophils Absolute Auto 4.4 x10*3/uL (2.0-8.3); Neutrophils Percent Auto 71.4 % (45-73); Platelet Count 227 X10*3/uL (160-400); Red Blood Count 4.15 X10*6/uL (4.60-5.80); Red Cell Distribution Width 14.6 % (11.0-16.0); White Blood Count 6.2 X10*3/uL (4.8-10.8)
[2024-12-17 14:44] LABS: Venous Blood Gas Refer to POC result
[2024-12-17] MEDS: cefEPime HCl 1 GM in 0.9 % Sodium Chloride 50 ML IV (14:44)
[2024-12-17] MEDS: methylPREDNISolone Sod Succ 125 MG/2 ML VIAL IVPUSH (14:44)
[2024-12-17 14:45] LABS: VBG Base Excess 0.2 mmol/L; VBG HCO3 24 mmol/L (22-26); VBG pCO2 36 mmHg; VBG pH 7.42 (7.32-7.43); VBG pO2 48 mmHg
[2024-12-17] MEDS: Lactated Ringers 2,100 ML 2100 ML IV (14:46)
[2024-12-17 14:50] LABS: INTERNATIONAL NORM RATIO 1.1 (0.9-1.1); Prothrombin Time 12.8 SEC (10.9-12.4)
[2024-12-17 14:52] LABS: Partial Thromboplastin Time 39.7 SEC (26.0-36.8)
[2024-12-17] MEDS: Azithromycin 500 MG in 0.9 % Sodium Chloride 250 ML 125 MG IV (14:55)
[2024-12-17] MEDS: vancomycin HCL 1,500 MG in 0.9 % Sodium Chloride 500 ML 333.33 MG IV (14:58)
[2024-12-17 15:05] LABS: Lactic Acid 1.6 mmol/L (0.5-2.0)
[2024-12-17 15:33] LABS: Alanine Aminotransferase 13 U/L (0-40); Anion Gap 15 (12-20); Aspartate Amino Transferase 31 U/L (5-37); Bilirubin Direct < 0.2 mg/dL (0.0-0.5); Bilirubin Total 0.2 mg/dL (0.0-1.0); Blood Urea Nitrogen 8 mg/dL (9-16); Calcium 9.1 mg/dL (8.4-10.2); Carbon Dioxide 21 mmol/L (22-29); Chloride 108 mmol/L (96-108); Creatinine Clr Calc Pharmacy 93.7; Estimated Glomerular Filt Rate > 60; Glucose Random 100 mg/dL (60-115); Potassium 3.8 mmol/L (3.3-5.1); Sodium 140 mmol/L (135-145); Total Protein 6.6 g/dL (6.5-8.0)
[2024-12-17] MEDS: Acetaminophen 325 MG TABLET 975 MG PO (15:58)
[2024-12-17 16:08] LABS: Influenza A PCR POSITIVE (Negative); Influenza B PCR NEGATIVE (Negative); Resp Syncy Virus RNA Qual PCR NEGATIVE (Negative); SARS COV2 PCR INHOUSE NEGATIVE (Negative)
[2024-12-17] MEDS: Oseltamivir Phosphate 75 MG CAPSULE PO (16:22)
--- NOTE | 2024-12-17 16:23 | P.HPHOSP_ITS ---
History of Present Illness Date of Service: 12/17/24 Chief Complaint: SOB, fever A 69 years old male with PMH of COPD, depression, anxiety, GERD and BPH who presented to the hospital complaining of difficulties breathing, cough and fever. The patient reports having URI symptoms for few days now with fever, chills, loose stool and decrease appetite. No chest pain, palpitations, nausea, vomiting, diarrhea or urinary symptoms. He reports increasing cough with thick greensh mucus. In ED found to be positive for Flu with wheezing and O2 requirement. CXR showing patchy opacities right mid and lower lung, appear chronic in nature and are unchanged from the prior exam. Admitted for further evaluation and treatment. Review of Systems 2 Review of Systems: reporting fever, chills or weakness No chest pain, palpitation having shortness of breath or coughing No abdominal pain, nausea or vomiting No urinary symptoms No any rash or wounds PMFSH Medical History COPD exacerbation Acute respiratory failure with hypoxemia Pneumonia COPD (chronic obstructive pulmonary disease) Social History Household Members: None Housing: Other Housing Other:: multi family Do you presently have visiting nurse or other home services: No Patient Tobacco Use Status: Current everyday Tobacco user Tobacco use type: Cigarette Cigarettes Per Day: 20 Years Smoked: 40 Smoked in Last 30 Days: Yes e-Cigarette/Vaping Use: Never Used Second Hand Smoke Exposure: No Use of substances other than those prescribed or required for medical reasons: Yes Substance Use Type: Marijuana Advance Directives: No Advance Directives Information Provided: No service: Yes Meds Allergies Allergy/AdvReac Type Severity Reaction Status Date / Time Penicillins [PENICILLINS] Allergy Intermediate UPSET Verified 12/17/24 14:18 STOMACH acetaminophen [ACETAMINOPHEN] Allergy Unknown DIARRHEA Verified 07/27/24 11:54 codeine [CODEINE] Allergy Unknown NAUSEA & Verified 07/27/24 11:54 VOMITING latex [LATEX] Allergy Unknown RASH Verified 07/27/24 11:54 Active Medications: Current Medications Azithromycin 500 mg/ Sodium (Chloride) 250 mls @ 125 mls/hr IV ONCE ONE Stop: 12/17/24 16:23 Last Admin: 12/17/24 14:55 Dose: 125 mls/hr Home Medications ?Medication ?Instructions ?Recorded ?Confirmed ?Last Taken ?Type omeprazole 20 mg capsule,delayed 20 mg PO DAILY@0630 07/27/24 07/27/24 07/24/24 History release pregabalin 150 mg capsule 150 mg PO BID@1400,2100 07/27/24 07/28/24 07/24/24 History pregabalin 150 mg capsule 300 mg PO DAILY 07/27/24 07/27/24 07/24/24 History sucralfate 1 gram tablet 1 g PO QID 07/27/24 07/27/24 07/24/24 History tamsulosin 0.4 mg capsule 0.8 mg PO DAILY 07/27/24 07/27/24 07/24/24 History albuterol sulfate 90 mcg/actuation 2 puff inhalation QID PRN 07/28/24 07/28/24 Unknown History aerosol inhaler Shortness Of Breath Or Wheezing citalopram 40 mg tablet 40 mg PO DAILY 07/28/24 07/28/24 Unknown History lorazepam 0.5 mg tablet 0.5 mg PO QID PRN Anxiety 07/28/24 07/28/24 Unknown History methylphenidate HCl 5 mg tablet 15 mg PO DAILY 07/28/24 07/28/24 Unknown History nicotine (polacrilex) 2 mg buccal 2 mg buccal Q2H PRN Nicotine 07/28/24 07/28/24 Unknown History mini lozenge Cravings zolpidem 10 mg tablet 10 mg PO BEDTIME PRN Insomnia 07/28/24 07/28/24 Unknown History fluticasone furoate 100 1 inh inhalation DAILY 12/17/24 Unknown History mcg/actuation blister powder for inhalation (Arnuity Ellipta) ipratropium 20 mcg-albuterol 100 1 puff inhalation QID 12/17/24 Unknown History mcg/actuation mist for inhalation (Combivent Respimat) Physical Exam 2 Vital Signs and Narrative: Vital Signs: Last Vital Signs Temp 100.8 F H 12/17/24 15:08 Pulse 105 H 12/17/24 15:59 Resp 26 H 12/17/24 15:59 BP 112/47 L 12/17/24 15:59 Pulse Ox 96 12/17/24 15:59 O2 Del Method Nasal Cannula 12/17/24 15:59 O2 Flow Rate 2 12/17/24 15:59 BMI result Body Mass Index 23.5 Const: Other: Constitutional : Awake, interactive, not in distress Neck : Normal inspection, Supple Cardiovascular : RRR, no JVP, no lower extremity edema Respiratory : decreased bilateral air entry, no crackles, expiratory wheezes, on O2 supplement Gastrointestinal: soft, lax, Normal bowel sounds, Non tender Skin : Warm, Dry Neurological : Alert & oriented x3, No focal deficit Results Labs 12/17/24 14:32 12/17/24 14:32 Labs: Laboratory Results - last 24 hr 12/17/24 12/17/24 12/17/24 14:32 14:39 15:20 MCV 93.7 MCH 31.6 MCHC 33.7 RDW 14.6 Plt Count 227 MPV 10.3 Immature Gran % (Auto) 0.5 H Neut % (Auto) 71.4 Lymph % (Auto) 18.0 L [place] % (Auto) 9.9 Eos % (Auto) 0.0 Baso % (Auto) 0.2 Lymph # (Auto) 1.1 L [place] # (Auto) 0.6 Eos # (Auto) 0.0 Baso # (Auto) 0.0 Abs Immat Gran (auto) 0.03 Absolute Neuts (auto) 4.4 Absolute Nucleated RBC 0.000 Nucleated RBC % (auto) 0.0 PT 12.8 H INR 1.1 APTT 39.7 H VBG pH Cancelled 7.42 VBG pCO2 Cancelled 36 VBG pO2 Cancelled 48 VBG HCO3 Cancelled 24 VBG O2 Saturation Cancelled 83.0 VBG Base Excess Cancelled 0.2 Anion Gap 15 Estim Creat Clear Calc 93.7 Estimated GFR > 60 Random Glucose 100 Lactic Acid 1.6 Calcium 9.1 Total Bilirubin 0.2 Direct Bilirubin < 0.2 AST 31 ALT 13 Total Protein 6.6 Albumin 4.0 Influenza Type A (PCR) POSITIVE A Influenza Type B (PCR) NEGATIVE RSV RNA Qual (PCR) NEGATIVE SARS-CoV-2 RNA (RT-PCR) NEGATIVE Imaging Radiologist's Impressions: Impressions Chest X-Ray 12/17/24 14:32 IMPRESSION: 1. Subtle patchy opacities right mid and lower lung, appear chronic in nature and are unchanged from the prior exam. 2. Otherwise, hyperaeration without superimposed active disease. Electronically signed by: Emerson David MD 12/17/2024 03:31 PM EST Assessment and Plan (1) Influenza: Status: Acute (2) COPD exacerbation: Status: Acute (3) Viral sepsis: Status: Acute Plan A 69 years old male with PMH of COPD, depression, anxiety, GERD and BPH who presented to the hospital complaining of difficulties breathing, cough and fever. Viral sepsis 2/2 Influenza A infection complicated with COPD exacerbation CXR as reported , chronic opacities in right lung no clear indication of bacterial infection Continue Tamiflu Duoneb Q6 and Albuterol PRN Methylprednisolone Q12 Azithromycin for pleotropic effect Wean O2 down as tolerated Mood disorder continue citalopram, ativan GERD continue prilosec, carafate BPH/h/o prostate ca continue flomax DVT prophylaxis Lovenox Code status full code pending MED REC The patient will be admitted for 2 nights for treatment of viral sepsis and COPD exacerbation of IV steroids and nebulizer treatment Quality Stroke Does the patient have a stroke diagnosis?: No VTE Prior VTE?: No VTE Risk Level:: Medical - moderate - high VTE Device Contraindication: Treatment Not Indicated VTE Drug Contraindication: N/A - Med Ordered
--- NOTE | 2024-12-17 16:26 | PC.NURSE ---
Pt presents to ED via EMS from home, reporting multiple days of cough, SOB, general malaise, body aches, diarrhea. Pt had recent pneumonia, finished his ABX but is still on steroids. Pt has hx of COPD, no baseline O2. EMS gave duo neb, found him to be 89-90% on RA, same when he arrived here. Pt is now on 1.5-2L O2 NC maintaining sats. Rectal temp found to be febrile. Alert and oriented, breathing more unlabored after treatments. Sinus tach on monitor.
--- OUTSIDE RECORDS SUMMARY | 2024-12-17 16:29 | XMS_ITS | Clinical Summary ---
Author Organization Formerly [facility] Address [address] [place] [address] Care Team Providers Care Tie Fastener Name Role Phone Ras Benavidez MD Primary Care Provider [phone] Allergies No known active allergies Medications Medication Sig Dispensed Refills Start Date End Date Status pregabalin (LYRICA) capsule 150 mg 0 12/29/2022 Active tamsulosin (FLOMAX) 0.4 MG CAPS 0 11/10/2022 Active LORazepam (ATIVAN) 0.5 MG tablet Take 1 tablet (0.5 mg total) by mouth every 6 (six) hours as needed. 0 Active methylphenidate (RITALIN) 5 MG tablet Take 1 tablet (5 mg total) by mouth 2 (two) times a day. 0 Active citalopram (CeleXA) 40 MG tablet Take 1 tablet (40 mg total) by mouth daily. 0 Active Active Problems Problem Noted Date Diagnosed Date Weight loss 05/11/2023 Easy bruising 05/11/2023 Hyponatremia 01/02/2023 Anemia 09/19/2022 Prostate cancer 09/19/2022 Iron deficiency anemia secon michi to inadequate dietary iron intake 09/19/2022 Radiation proctitis 09/19/2022 Family History Medical History Relation Name Comments Cancer Brother Relation Name Status Comments Brother Social History Tobacco Use Types Packs/Day Years Used Date Smoking Tobacco: Every Day Cigarettes 1 Smokeless Tobacco: Never Tobacco Cessation:Ready to Q uit: Not Asked; Counseling Given: Not Answered Alcohol Use Standard Drinks/Week Comments Not Currently 0 (1 standard drink = 0.6 oz pur e alcohol) Sex and Gender Information Value Date Recorded Sex Assigned at Not on file Gender Identity Not on file Sexual Orientation Not on file Job Start Date Occupation Industry Not on file Not on file Not on file Last Filed Vital Signs Vital Sign Reading Time Taken Comments Blood Pressure 140/67 07/03/2024 2:59 PM EDT Pulse 78 07/03/2024 2:59 PM EDT Temperature 37.2 ??C (98.9 ??F) 07/03/2024 2:59 PM ED T Respiratory Rate - - Oxygen Saturation 97% 07/03/2024 2:59 PM EDT Inhaled Oxygen Concentration - - Weight 66.5 kg (146 lb 9.6 oz) 07/03/2024 2:59 P M EDT Height 172.7 cm (5' 8 ) 07/03/2024 2:59 PM EDT Body Mass Index 22.29 07/03/2024 2:59 PM EDT Plan of Treatment Health Maintenance Due Date Last Done Comments Hepatitis C Screening 1955 COVID-19 Vaccine (#1) 1962 Depression Screening 1969 Preventative Health Evaluation 1975 Tobacco Cessation Counseling 1975 Shingrix-Zoster Vaccine (1 of 2) 1976 Colon Cancer Screening (Colonoscopy) 2002 Abdominal Aortic Aneurysm (AAA) Screening 2022 Fall Risk Assessment 2022 Influenza Vaccine (#1) 2024 3, 12/30/2022, 11/04/2019, Additional history exists DTap / Tdap / Td (3 - Td or Tdap) 09/06/2024 09/06/2014, 08/06/2013, 03/15/2005 RSV Adult > 60+ Yrs or (1 - 1-dose 75+ series) 2032 Hepatitis B Vaccines Completed 01/12/2016, 11/10/2015, 05/27/2015, Additional history exists Pneumococcal Vaccine Completed 12/06/2022, 10/03/2017, 02/25/2015, Additional history exists RSV Ped < 20 months Aged Out No longe r eligible based on patient's age to complete this topic Care Teams Tie Fastener Relationship Specialty Start Date End Date Ras Benavidez MD PCP - General Internal Medicine 06/13/22
--- OUTSIDE RECORDS SUMMARY | 2024-12-17 16:29 | XMS_ITS ---
Author Organization [address] Address [address] [place] [phone] Phone Care Team Providers Care Temperature Inspector Name Role Phone Ras Benavidez MD Primary Care Provider [phone] Research Tech Care Management Status:Ongoing (Active) Start date:10/01/2024 Enrollment date:10/07/2024 Enrollment reason:Referred by Care Team Overview Referred by Bernadette - pt seeking therapist in the community - [facility] Case Team Name Relationship Phone Farida Stepan ORDOÑEZ Brim Curler(Responsible St aff) [phone] Continued Care and Services Coordination
--- OUTSIDE RECORDS SUMMARY | 2024-12-17 16:29 | XMS_ITS ---
Author Organization [address] Address [address] [place] [phone] Phone Care Team Providers Care Basin Finish Operator Tig Welder Name Role Phone Ras Benavidez MD Primary Care Provider [phone] Chronic Care Management Status:Ongoing (Active) Start date:08/12/2024 Enrollment date:09/10/2024 Enrollment reason:Referred by Care Team Case Team Name Relationship Phone Bernadette Lott RN Care Manager(Responsible S taff) Continued Care and Services Coordination
--- OUTSIDE RECORDS SUMMARY | 2024-12-17 16:29 | XMS_ITS | Encounter Summary ---
Author Organization [employer] Address [address] [place] [address] Care Team Providers Care Bobbin Drier Name Role Phone Ras Benavidez MD Primary Care Provider [phone] Encounter Details Date Type Department Care Team (Late st Contact Info) Description 11/21/2024 Nurse Triage Adult Medicine [address] [phone] Ashley Adams, RN Social History Tobacco Use Types Packs/Day Years Used Date Smoking Tobacco: Every Day Cigarettes Started: 11/06/1971 Smokeless Tobacco: Never Alcohol Use Standard Drinks/Week Comments No 0 (1 standard drink = 0.6 oz pur e alcohol) Sex and Gender Information Value Date Recorded Sex Assigned at Not on file Legal Sex Male 11:04 PM EST Gender Identity Not on file Sexual Orientation Not on file documented as of this encounter Progress Notes * Ashley Adams RN - 11/21/2024 3:01 PM EST Per Bernadette Lott; Pt called stating that he thinks he has pink eye. He states his sclera in his left eye is red. He denies pain, drainage, itchiness, or any cold s/s.He denies any vision changes or headaches. He did not have crust in his eye this morning either. He noticed it for the firsttime yesterday and was unsure if there was something he should be taking. He did say he has been having constipation and has been straining. He would like to be called for advice on both his eye and constipation. He states he tried to simone in but was on hold for 1 hour He is also reporting redness in his left eye. No sudden or severe pain. He denies sudden vision loss or blurred or double vision. His pupils are equal. No curtain over his field of vision. He denies sudden increase in floaters. No flashes of light. No halos or rainbows around light. He denies blood in the colored part of his eye. He is able to open his eye and keep it open. No fever, light sensitivity, bilateral swelling. No pain, watering, eye drainage and/or he does not wear contact lenses. No fever. He denies pain. No lesion on eyeball or corner of the eye. His eyes are not swollen shut. No persistent itching, burning and/or drainage. He denies swollen neck, lymph nodes and/or redness around the entire eye. No stye. He denies excessive persistent tearing of his eye. He reports blood in the white part of his eye for 2-3 days. He was given home care instructions for eye problems as listed on pg # 230 of Telephone Triage Protocols for Nurses. He stated he would like an appointment for his eye. Explained to pt there were no appointments available in the office and offered an appointment at [address] [place] [address] in [place]. Pt declined an appointment at [address] [place] [address] or an appointment in our office in 2 weeks r/t constipation. Reason for Disposition [1] Constipation persists > 1 week AND [2] no improvement after using Care Advice Answer Assessment - Initial Assessment Questions 1. STOOL PATTERN OR FREQUENCY: How often do you have a bowel movement (BM)? (Normal range: 3 times a day to every 3 days) When was your last BM? He states he normally moves his bowels twice a day. His last BM was this morning. 2. STRAINING: Do you have to strain to have a BM? Sometimes he has to strain 3. ONSET: When did the constipation begin? He states he has intermittent constipation alternating with diarrhea since 2020 after his cancer treatment. 5. RECTAL PAIN: Does your rectum hurt when the stool comes out? If Yes, ask: Do you have hemorrhoids? How bad is the pain? (Scale 1-10; or mild, moderate, severe) He rates the rectal pain as 5/10. He is unsure if he has hemorrhoids. No hemorrhoids at his most recent exam. 6. BM COMPOSITION: Are the stools hard? Sometimes. 7. BLOOD ON STOOLS: Has there been any blood on the toilet tissue or on the surface of the BM? IfYes, ask: When was the last time? Not recently 8. CHRONIC CONSTIPATION: Is this a new problem for you? If No, ask: How long have you had this problem? (days, weeks, months) No. Please see above 8. CHANGES IN DIET OR HYDRATION: Have there been any recent changes in your diet? How much fluids are you drinking on a daily basis? How much have you had to drink today? He states he does not drink enough fluids at times 9. MEDICINES: Have you been taking any new medicines? Are you taking any narcotic pain medicines? (e.g., Dilaudid, morphine, Percocet, Vicodin) Methylphenidate. No narcotic medications 10. LAXATIVES: Have you been using any stool softeners, laxatives, or enemas? If Yes, ask What, how often, and when was the last time? No 11. ACTIVITY: How much walking do you do every day? Has your activity level decreased in the past week? He states he does not walk much during the day r/t COPD. He had pneumonia a couple of months ago. 12. CAUSE: What do you think is causing the constipation? Radiation r/t cancer 13. MEDICAL HISTORY: Do you have a history of hemorrhoids, rectal fissures, rectal surgery, or rectal abscess? Hemorrhoids. He has a history of rectal fissures and rectal surgery. 14. OTHER SYMPTOMS: Do you have any other symptoms? (e.g., abdomen pain, bloating, fever, vomiting) No other symptoms 15. : Is there any chance you are ? When was your last menstrual period? No. Pt is a male. Protocols used: [id number] documented in this encounter Plan of Treatment Upcoming Encounters Date Type Department Care Team ([facility] st Contact Info) Description 01/31/2025 1:15 PM EDT Office Visit Pulmonolgy - [address] [phone] Cari Guerrero MD [address] [place] [phone] 03/06/2025 2:00 PM EDT Office Visit Adult Medicine [facility] [address] [place] [phone] Ras Benavidez MD [address] [place] [address] 07/02/2025 2:00 PM EDT Office Visit [facility] Hematology Oncology [address] [place] [address] Chinedu Khanna MD [address] [place] [address] documented as of this encounter Visit Diagnoses Not on filedocumented in this encounter Additional Health Concerns Assessment Noted Time PHQ-9 Depression Total Score: 0 09/30/20 24 11:01 AM EST documented as of this encounter Care Teams Bobbin Drier Relationship Specialty Start Date End Date Ras Benavidez MD PCP - General Internal Medicine 07/29/13 documented as of this encounter
--- OUTSIDE RECORDS SUMMARY | 2024-12-17 16:29 | XMS_ITS | Clinical Summary ---
Author Organization [facility] [address] [place] [address] [place] [phone] Phone Care Team Providers Care Blocker Polishing Name Role Phone Ras Benavidez MD Primary Care Provider [phone] Allergies No known active allergies Medications citalopram (CeleXA) 40 mg tablet Take 1 tablet (40 mg total) by mouth daily. Active LORazepam (ATIVAN) 0.5 mg tablet Take 1 tablet (0.5 mg total) by mouth every 6 (six) hours as needed. Active methylphenidat e (RITALIN) 5 mg tablet Take 1 tablet (5 mg total) by mouth 2 (two) times a day. Active ipratropium-al buteroL (Combivent Respimat) 20-100 mcg/actuation inhaler INHALE ONE PUFF BY MOUTH FOUR TIMES A DAY 4 g 1 4 Active albuterol HFA (PROAIR HFA ; PROVENTIL HFA ; VENTOLIN HFA) 90 mcg/actuation inhaler INHALE TWO PUFFS BY MOUTH EVERY 4 HOURS NEEDED FOR COUGH OR WHEEZING 8.5 g 1 4 Active tamsulosin (FLOMAX) 0.4 mg 24 hr capsule TAKE TWO CAPSULES BY MOUTH EVERY DAY 30 MINUTES AFTER SAME MEAL EVERY DAY 180 capsule 1 4 Active zolpidem (AMBIEN) 10 mg tablet Take 1 tablet (10 mg total) by mouth at bedtime as needed for sleep. Rxd by Med Rivas # 30/30 days Max Daily Amount: 10 mg Active sucralfate (CARAFATE) 1 gram tablet TAKE ONE TABLET BY MOUTH FOUR TIMES A DAY 360 tablet 1 5 Active sucralfate (CARAFATE) 1 gram tablet Take 1 tablet (1 g total) by mouth 4 (four) times a day. 1 Active pregabalin (LYRICA) 150 mg capsule TAKE 2 CAPSULES BY MOUTH EVERY DAY IN THE MORNING AND 1 CAPSULE EVERY EVENING AND 1 CAPSULE AT BEDTIME. 120 capsule 5 Active omeprazole (PriLOSEC) [address] capsule TAKE ONE CAPSULE BY MOUTH DAILY 90 capsule 1 5 Active pregabalin (LYRICA) 150 mg capsule TAKE TWO CAPSULES BY MOUTH EVERY DAY IN THE MORNING AND 1 CAPSULE EVERY EVENING AND 1 CAPSULE AT BEDTIME 120 capsule 4 025 Discontinued Active Problems Problem Noted Date Diagnosed Date Easy bruising 05/11/2023 Weight loss 05/11/2023 Hyponatremia 01/02/2023 Anemia 09/19/2022 Iron deficiency anemia secon michi to inadequate dietary iron intake 09/19/2022 Prostate cancer 09/19/2022 Radiation proctitis 09/19/2022 Encounters Date Type Department Care Team Description 11/21/2024 Nurse Triage Adult [address] [phone] Ashley Adams, RN 10/31/2024 2:57 PM EST - 10/31/2024 11:59 PM [facility] Hospital Encounter [address] [phone] Pneumonia due to infectious organism, unspecified laterality, unspecified part of lung Discharge Disposition: Home or Self Care 10/24/2024 Telephone Adult Medicine [address] [phone] Ashley Adams, RN from Last 3 Months Surgical History Surgery Date Site/Laterality Comments COLONOSCOPY PROCEDURE:COLONOSCOPY OTHER SURGICAL HISTORY PROCEDURE:REPAIR OF NASAL SEPTUM OTHER SURGICAL HISTORY PROCEDURE:INCISION OF ANAL FISTULA NASAL SEPTUM SURGERY PROCEDURE: AL SEPTOPLASTY/SUBMUCOUS RESECJ W/WO CARTILAGE GRF OTHER SURGICAL HISTORY 03/11/2014 PROCEDURE: INCISION OF ANAL FISTULA; COMMENT: Dr. Sal COLONOSCOPY 08/02/2017 PROCEDURE: HISTORICAL COLONOSCOPY; COMMENT: normal; repeat in 10 yrs Medical History Medical History Date Comments Prostate cancer (CMS/HCC) DX:Pro state cancer (HCC) GERD (gastroesophageal reflu x disease) DX:GERD (gastroesophageal re flux disease) Hep C w/o coma, chronic (CMS/HCC) DX:Hep C w/o coma, chronic (HCC) Bipolar 2 disorder (CMS/HCC) DX: Bipolar 2 disorder (HCC) Back pain DX:Back pain; CO MMENT: compression fractures Neck pain DX:Neck pain; CO MMENT: compression fractures Bipolar 2 disorder (CMS/HCC) DX: Bipolar 2 disorder (HCC) GERD (gastroesophageal reflu x disease) DX:GERD (gastroesophageal re flux disease) Hep C w/o coma, chronic (CMS/HCC) 09/05/2014 DX:Hep C w/o coma, chronic (HCC); COMMENT: Dr. Alen Camarillo Historical Medical DX 09/05/2014 DX:Emphyse ma Pulmonary emphysema (CMS/HCC) 09/05/2014 DX :Pulmonary emphysema (HCC); COMMENT: IMO update Family History Medical History Relation Name Comments Cancer Brother Emphysema Mother non-smoker Colon cancer Neg Hx Diabetes Neg Hx Hypertension Neg Hx Prostate cancer Neg Hx Relation Name Status Comments Brother Mother Social History Tobacco Use Types Packs/Day Years [...] on file Sexual Orientation Not on file Obstetrics History Last Filed Vital Signs Vital Sign Reading Time Taken Comments Blood Pressure 120/70 08/29/2024 3:24 PM EDT Pulse 91 08/29/2024 3:24 PM EDT Temperature - - Respiratory Rate - - Oxygen Saturation - - Inhaled Oxygen Concentration - - Weight 65.8 kg (145 lb) 08/29/2024 3:24 PM EDT Height 170.2 cm (5' 7 ) 08/29/2024 3:24 PM EDT Body Mass Index 22.71 08/29/2024 3:24 PM EDT Plan of Treatment Upcoming Encounters Date Type Department Care Team (Late st Contact Info) Description 01/31/2025 1:15 PM EDT Office Visit Pulmonolgy - [place] [facility] [address] [place] [phone] Cari Guerrero MD [address] [facility] [address] [place] [address] 03/06/2025 2:00 PM EDT Office Visit Adult Medicine [facility] [address] [place] [phone] Ras Benavidez MD [address] [place] [address] 07/02/2025 2:00 PM EDT Office Visit [facility] Hematology Oncology [address] [place] [phone] Chinedu Khanna MD [address] [place] [address] Health Maintenance Due Date Last Done Comments Hepatitis A Vaccines (4 of 4 - Hep A Twinrix risk 4-dose series) 05/27/2016 01/12/2016, 11/10/2015, 05/27/2015 Zoster Vaccines (1 of 2) 12/27/2017 11/01/2017 Abdominal Aortic Aneurysm (AAA) Screen 10/15/2022 Colorectal Cancer Screening: Colonoscopy 10/15/2022 Falls Risk Assessment 10/15/2022 Hepatitis C Screening 10/15/2022 Medicare Annual Wellness Visit 10/15/2022 Social Influencers of Health Screening 10/15/2022 Lung Cancer Screening (Low Dose CT) 01/18/2025 01/19/2024, 01/05/2023, 12/30/2021, Additional history exists Depression Screening 09/30/2025 09/30/2024 DTaP,Tdap,and Td Vaccines (5 - Td or Tdap) 11/01/2027 11/01/2017, 09/06/2014, 08/06/2013, Additional history exists Cholesterol Screening (Lipid Panel) 08/16/2029 08/16/2024 Hepatitis B Vaccines Completed 01/12/2016, 11/10/2015, 05/27/2015, Additional history exists Pneumococcal Vaccine: 50+ Years Completed 12/06/2022, 10/03/2017, 02/25/2015, Additional history exists COVID-19 Vaccine Completed 08/16/2024, , 08/21/2023, Additional history exists Influenza Vaccine Completed 08/16/2024, , 07/19/2023, Additional history exists RSV Immunization Patients 60+ Years Old Completed 09/09/2024 HIB Vaccines Aged Out No longer eligi ble based on patient's age to complete this topic HPV Vaccines Aged Out No longer eligi ble based on patient's age to complete this topic IPV Vaccines Aged Out No longer eligi ble based on patient's age to complete this topic MMR Vaccines Aged Out No longer eligi ble based on patient's age to complete this topic Meningococcal ACWY Vaccine Aged Out N o longer eligible based on patient's age to complete this topic Meningococcal B Vacine Aged Out No lo nger eligible based on patient's age to complete this topic RSV Immunization Patients Under 20 months Aged Out No longer eligible based on patient's age to complete this topic Varicella Vaccines Aged Out No longer eligible based on patient's age to complete this topic Procedures Procedure Name Priority Date/Time Associated Diagnosis Comments XR CHEST 2 VIEWS Routine 10/31/2024 3:05 PM EST Pneumonia due to infectious organism, unspecified laterality, unspecified part of lung CT LUNG SCREENING LOW DOSE Routine 01/19/2024 3:41 PM EDT Personal history of nicotine dependence from Last 3 Months or Most Recently Relevant to Health Maintenance Results * XR Chest 2 Views (10/31/2024 3:05 PM EST) Anatomical Region Laterality Modality Body Radiographic Louise ging 10/31/2024 3:13 PM EST Narrative 10/31/2024 3:16 PM EST Chest, 2 views. History follow-up pneumonia. Comparison with prior study from 08/26/2024. Lungs remain hyperinflated. There is no pneumothorax, pleural effusions or congestive heart failure. There is chronic blunting of the CP angles. Again noted are moderate compression deformity of the T7, mild compression deformity of the T9 CT of the change since previous examination. Cardiomediastinal silhouette is stable in appearance. CONCLUSIONS: No acute radiographic abnormalities in the chest. Probably chronic blunting of the CP angles. Hyperinflation. Multiple compression deformities in the thoracic spine unchanged since prior examination. -------- FINAL REPORT -------- Dictated By: Dolores Shetty Dictated Date: 10/31/2024 15:13 ET Assigned Physician: Dolores Shetty Reviewed and Electronically Signed By: Dolores Shetty Signed Date: 10/31/2024 15:16 ET Workstation ID: [id number] Transcribed By: Self Edit Transcribed Date: 10/31/2024 15:13 ET Procedure Note Dolores Shetty MD - 10/31/2024 Chest, 2 views. History follow-up pneumonia. Comparison with prior study from 08/26/2024. Lungs remain hyperinflated.There is no pneumothorax, pleural effusions or congestive heart failure.There is chronic blunting of the CP angles. Again noted are moderatecompression deformity of the T7, mild compression deformity of the T9 CTof the change since previous examination. Cardiomediastinal silhouette isstable in appearance. CONCLUSIONS: No acute radiographic abnormalities in the chest. Probablychronic blunting of the CP angles. Hyperinflation. Multiple compressiondeformities in the thoracic spine unchanged since prior examination. -------- FINAL REPORT -------- Dictated By: Dolores Shetty Dictated Date: 10/31/2024 15:13 ET Assigned Physician: Dolores Shetty Reviewed and Electronically Signed By: Dolores Shetty Signed Date: 10/31/2024 15:16 ET Workstation ID: [id number] Transcribed By: Self Edit Transcribed Date: 10/31/2024 15:13 ET us Ras Benavidez MD IMG XR PROCEDURES Final Result * CT LUNG SCREENING LOW DOSE (01/19/2024 3:41 PM EDT) Anatomical Region Laterality Modality Computed Tomogra phy 01/19/2024 2:23 PM EDT Narrative 01/19/2024 3:41 PM EDT [facility] Diagnostic Imaging Department [address] [place] [id number] Patient: ??PANDA FLOWERS ?/Age/Sex: 1955 - 68 - M Unit#: ??[id number] ? Location/Status: ??SPDICATLS/REG CLI ? Mnemonic/Ordering Site: ??CTLUNGLD/SPCT Ordering Physician: ??ANDREW SCHWARZ MD CT Lung Screening Low Dose - 01/19/24 - [id number] Report Status:Signed Chest CT, 01/19/2024 3:11 PM. TECHNIQUE: Low-dose CT of the chest without intravenous contrast administration. ??Coronal and sagittal reformats and MIP reconstructions were created. HISTORY: LOW DOSE LUNG SCREENING COMPARISON: 01/04/2023. FINDINGS: Lungs/pleura: Normal caliber airways. ??No endobronchial nodule. ??Moderate- severe centrilobular emphysema. ??Mild scarring at the apices, right greater than left. There is a stable 5 mm nodule at the left apex, series 3 image 23. Stable 4 mm nodule in the posterior medial left upper lobe, image 80. No pleural effusion or pneumothorax. Mediastinum/moe: No mass or adenopathy. Vasculature: Normal caliber pulmonary arteries. ??Moderate atherosclerotic calcifications of the aorta and great vessels. Cardiac: Moderate coronary artery calcifications. Chest wall: No adenopathy. ??Mild right greater than left gynecomastia. Limited abdomen: Normal. Bones: Moderate degenerative changes of the spine. ??There are stable multilevel vertebral endplate fracture deformities. IMPRESSION: Lung RADS 2. ??Recommend repeat annual low-dose screen CT in 12 months as per guidelines. Dictating Physician: ??ALINA CALDERON MD Electronically Signed by: ??ALINA CALDERON MD Dic Date/Time: ??01/19/24 1511 Sign date/Time: ??01/19/24 1541 Procedure Note Alina Calderon MD - 06/24/2024 [facility] Diagnostic Imaging Department [address] [place] [address] Patient: PANDA FLOWERS./Age/Sex: 1955 - 68 - M Unit#: [id number] Location/Status: [facility] Mnemonic/Ordering Site: [facility] Ordering Physician: ANDREW SCHWARZ MD CT Lung Screening Low Dose - 01/19/24 - [id number] Report Status:Signed Chest CT, 01/19/2024 3:11 PM. TECHNIQUE: Low-dose CT of the chest without intravenous contrast administration. Coronal and sagittal reformats and MIP reconstructionswere created. HISTORY: LOW DOSE LUNG SCREENING COMPARISON: 01/04/2023. FINDINGS: Lungs/pleura: Normal caliber airways. No endobronchial nodule.Moderate- severe centrilobular emphysema. Mild scarring at the apices, rightgreater than left. There is a stable 5 mm nodule at the left apex, series 3 image 23. Stable 4 mm nodule in the posterior medial left upper lobe, image 80. No pleural effusion or pneumothorax. Mediastinum/moe: No mass or adenopathy. Vasculature: Normal caliber pulmonary arteries. Moderateatherosclerotic calcifications of the aorta and great vessels. Cardiac: Moderate coronary artery calcifications. Chest wall: No adenopathy. Mild right greater than left gynecomastia. Limited abdomen: Normal. Bones: Moderate degenerative changes of the spine. There are stablemultilevel vertebral endplate fracture deformities. IMPRESSION: Lung RADS 2. Recommend repeat annual low-dose screen CT in 12 months asper guidelines. Dictating Physician: ALINA CALDERON MD Electronically Signed by: ALINA CALDERON MD Dic Date/Time: 01/19/24 1511 Sign date/Time: 01/19/24 1541 Andrew Schwarz MD IMG CT PROCEDURES Final Result from Last 3 Months or Most Recently Relevant to Health Maintenance Insurance MEDICARE MEDICAID - [place] Care Teams Blocker Polishing Relationship Specialty Start Date End Date Ras Benavidez MD PCP - General Internal Medicine 07/29/13
--- NOTE | 2024-12-17 16:55 | PC.NURSE ---
Flu +, precautions in place
[2024-12-17 17:26] LABS: Alkaline Phosphatase 42 U/L (39-117)
[2024-12-17] MEDS: Lactated Ringers 1,000 ML 100 ML IVCONT (17:47)
[2024-12-17] MEDS: Enoxaparin Sodium 40 MG/0.4 ML SYRINGE SUBCUT (17:49)
--- NOTE | 2024-12-17 18:18 | PHA.MEDREC ---
Addendum entered by Moe Haas sandy 12/17/24 18:29: med rec reviewed Original Note: Pharmacy Consult ? Medication Reconciliation Pharmacy has completed the medication reconciliation. Spoke with patient and confirmed his medications. Patient confirmed he last took his medications yesterday.
--- NOTE | 2024-12-17 20:57 | PC.NURSE ---
This RN assumed pt care @ 1900. Pt a&ox4, no signs of distress Pt denies pain at this time Pt medicated per jan Pt requested and lights dimmed Plan of care ongoing.
[2024-12-17] MEDS: Pregabalin 150 MG CAPSULE PO (20:58)
[2024-12-17] MEDS: guaiFENesin DM 600/30 1 TAB TAB.ER.12H PO (20:58)
[2024-12-18] VITALS (11 sets, daily range): BP systolic 96–142; BP diastolic 50–61; PULSE 77–96; RESP 17–25; TEMP 36.4–37.1; O2SAT 91–99
[2024-12-18] MEDS: Albuterol Sulfate (0.083%) 2.5 MG/3 ML VIAL.NEB INHALE ×2 (01:25→05:43)
--- NOTE | 2024-12-18 03:53 | PC.NURSE ---
Pt out of bed without pressing for assistance Pt screaming help Pt pulled out one of his IV's, and took off 02. Pt assisted back into bed, given a clean gown. Pt educated on how to ring call jeffries. Plan of care ongoing.
[2024-12-18 05:05] LABS: MANUAL DIFF FLAG NO
[2024-12-18 05:07] LABS: Hemoglobin 12.6 g/dl (14.0-18.0); Imm Gran Abs Auto 0.02 X10*3/uL (0.00-0.03); Imm Gran Pct Auto 0.4 % (0.0-0.4); Lymphocytes Absolute Auto 0.4 X10*3/uL (1.2-4.9); Lymphocytes Percent Auto 8.5 % (20-40); Mean Corpuscular HGB Conc 34.1 g/dl (31.0-36.0); Mean Corpuscular Hemoglobin 31.7 pg (27.0-33.0); Mean Platelet Volume 10.9 fL (9.4-12.4); Monocytes Absolute Auto 0.4 X10*3/uL (0.1-1.2); Monocytes Percent Auto 8.7 % (2-11); Neutrophils Absolute Auto 3.7 x10*3/uL (2.0-8.3); Neutrophils Percent Auto 82.4 % (45-73); Platelet Count 210 X10*3/uL (160-400); Red Blood Count 3.98 X10*6/uL (4.60-5.80); Red Cell Distribution Width 14.6 % (11.0-16.0); White Blood Count 4.5 X10*3/uL (4.8-10.8)
[2024-12-18] MEDS: Loperamide HCl 2 MG CAPSULE PO ×2 (05:12→17:16)
[2024-12-18] MEDS: Lactated Ringers 1,000 ML 100 ML IVCONT ×2 (05:19→14:51)
[2024-12-18 05:21] LABS: Anion Gap 13 (12-20); Blood Urea Nitrogen 9 mg/dL (9-16); Calcium 8.5 mg/dL (8.4-10.2); Carbon Dioxide 21 mmol/L (22-29); Chloride 113 mmol/L (96-108); Creatinine Clr Calc Pharmacy 113.6; Estimated Glomerular Filt Rate > 60; Glucose Random 121 mg/dL (60-115); Potassium 3.5 mmol/L (3.3-5.1); Sodium 143 mmol/L (135-145)
--- NOTE | 2024-12-18 05:28 | PC.NURSE ---
Pt medicated per jan Pt assisted to bedside commode and back into the bed Plan of care ongoing.
[2024-12-18] MEDS: Albuterol/Iprat 2.5/0.5MG 3 ML AMPUL.NEB INHALE ×4 (07:35→19:16)
[2024-12-18] MEDS: Oseltamivir Phosphate 75 MG CAPSULE PO ×2 (09:18→17:21)
[2024-12-18] MEDS: Tamsulosin HCL 0.4 MG CAPSULE 0.8 MG PO (09:18)
[2024-12-18] MEDS: methylPREDNISolone Sod Succ 40 MG/ML VIAL IVPUSH ×2 (09:18→20:07)
[2024-12-18] MEDS: guaiFENesin DM 600/30 1 TAB TAB.ER.12H PO ×2 (09:18→20:06)
[2024-12-18] MEDS: Pregabalin 150 MG CAPSULE PO ×2 (09:18→20:06)
[2024-12-18] MEDS: 0.9 % Sodium Chloride Flush 3 ML SYRINGE IVFLUSH (09:19)
--- NOTE | 2024-12-18 09:35 | MHC.CM.PN ---
CM met with Patient at bedside, in the ED and addressed [facility] with him(original was given to Patient and a copy will be placed on the chart). Patient lives alone in an apartment and he states that he uses no DME and is active with [facility]. Home/resume said services is the Patient's goal and CM has initiated and will follow for dc planning. PCP is Dr. Ras Benavidez and Patient will require assist with transportation to home. Patient declined the completion of a HCP.
[2024-12-18] MEDS: Azithromycin 500 MG TABLET PO (14:48)
--- NOTE | 2024-12-18 17:09 | P.PNIM_ITS ---
Subjective Subjective Date of Service: 12/18/24 Interval History: sob Physical Exam 2 Vital Signs: Vital Signs: Last Vital Signs Temp 98.5 F 12/18/24 15:31 Pulse 89 12/18/24 16:12 Resp 18 12/18/24 16:12 BP 113/56 L 12/18/24 15:31 Pulse Ox 94 12/18/24 15:31 O2 Del Method Room Air 12/18/24 15:31 O2 Flow Rate 1.5 12/18/24 06:14 BMI result Body Mass Index 23.5 General: AO X 3, no acute distress Resp: CTA bilateral, no accessory muscles used CVS: S1,S2,RRR GI: soft, non tender, non distended Neuro: motor grossly intact, alert Psych: appropriate affect, appropriate insight Objective Data Active Medications Acetaminophen (Acetaminophen 325 Mg Tablet) 650 mg PO Q6H PRN PRN Reason: Pain, Mild 1-3,fever,headache Albuterol Sulfate (Albuterol Sulfate (0.083%) 2.5 Mg/3 Ml Vial.Neb) 2.5 mg INHALE Q4H PRN PRN Reason: Shortness of Breath/Wheezing Last Admin: 12/18/24 05:43 Dose: 2.5 mg Documented By: PADMAJA Albuterol/Ipratropium (Albuterol/Iprat 2.5/0.5mg 3 Ml Ampul.Neb) 3 ml INHALE RQ4H WHILE AWAKE [facility] Last Admin: 12/18/24 16:10 Dose: 3 ml Documented By: CHRISTINA Azithromycin (Azithromycin 500 Mg Tablet) 500 mg PO Q24H [facility] Last Admin: 12/18/24 14:48 Dose: 500 mg Documented By: GRAZIC Benzonatate (Benzonatate 100 Mg Capsule) 100 mg PO TID PRN PRN Reason: Cough Calcium Carbonate (Calcium Carbonate 750 Mg Tab.Chew) 750 mg PO Q4H PRN PRN Reason: Heartburn Enoxaparin Sodium (Enoxaparin Sodium 40 Mg/0.4 Ml Syringe) 40 mg SUBCUT Q24H [facility] Last Admin: 12/17/24 17:49 Dose: 40 mg Documented By: RENAE Guaifenesin (Guaifenesin 200 Mg/10 Ml 10 Ml Liquid) 10 ml PO Q6H PRN PRN Reason: Cough Guaifenesin/Dextromethorphan (Guaifenesin Dm 600/30 1 Tab Tab.Er.12h) 1 tab PO BID [facility] Last Admin: 12/18/24 09:18 Dose: 1 tab Documented By: JENNIFER Lactated Ringer's (Lr) 1,000 mls @ 100 mls/hr IVCONT .Q10H [facility] Last Admin: 12/18/24 14:51 Dose: 100 mls/hr Documented By: ADAN Loperamide HCl (Loperamide Hcl 2 Mg Capsule) 2 mg PO Q4H PRN PRN Reason: Diarrhea Lorazepam (Lorazepam 0.5 Mg Tablet) 0.5 mg PO Q6H PRN PRN Reason: Anxiety Magnesium Hydroxide (Milk Of Magnesia 30 Ml Oral.Susp) 30 ml PO DAILY PRN PRN Reason: Constipation Melatonin (Melatonin 3 Mg Tablet) 6 mg PO BEDTIME PRN PRN Reason: Insomnia Methylprednisolone Sodium Succinate (Methylprednisolone Sod Succ 40 Mg/Ml Vial) 40 mg IVPUSH Q12H [facility] Last Admin: 12/18/24 09:18 Dose: 40 mg Documented By: JENNIFER Ondansetron HCl (Ondansetron Hcl 4 Mg/2 Ml Vial) 4 mg IVPUSH Q8H PRN PRN Reason: Nausea and Vomiting Oseltamivir Phosphate (Oseltamivir Phosphate 75 Mg Capsule) 75 mg PO Q12H [facility] Stop: 12/22/24 19:01 Last Admin: 12/18/24 09:18 Dose: 75 mg Documented By: JENNIFER Pregabalin (Pregabalin 150 Mg Capsule) 150 mg PO BID [facility] Last Admin: 12/18/24 09:18 Dose: 150 mg Documented By: JENNIFER Sodium Chloride (0.9 % Sodium Chloride Flush 3 Ml Syringe) 3 ml IVFLUSH QSHIFT [facility] Last Admin: 12/18/24 14:53 Dose: Not Given Documented By: ADAN Non-Admin Reason: IV Running Tamsulosin HCl (Tamsulosin Hcl 0.4 Mg Capsule) 0.8 mg PO DAILY [facility] Last Admin: 12/18/24 09:18 Dose: 0.8 mg Documented By: JENNIFER Labs 12/18/24 04:29 12/18/24 04:29 Labs: Laboratory Results - last 24 hr 12/17/24 12/18/24 14:32 04:29 MCV 93.0 MCH 31.7 MCHC 34.1 RDW 14.6 Plt Count 210 MPV 10.9 Immature Gran % (Auto) 0.4 Neut % (Auto) 82.4 H Lymph % (Auto) 8.5 L Wilcox % (Auto) 8.7 Eos % (Auto) 0.0 Baso % (Auto) 0.0 Lymph # (Auto) 0.4 L Wilcox # (Auto) 0.4 Eos # (Auto) 0.0 Baso # (Auto) 0.0 Abs Immat Gran (auto) 0.02 Absolute Neuts (auto) 3.7 Absolute Nucleated RBC 0.000 Nucleated RBC % (auto) 0.0 Anion Gap 13 Estim Creat Clear Calc 113.6 Estimated GFR > 60 Random Glucose 121 H Calcium 8.5 D Alkaline Phosphatase 42 Microbiology Microbiology Results: Microbiology 12/17/24 14:41 Blood Culture - Preliminary Blood - Venous No growth after 24 hours. 12/17/24 14:34 Blood Culture - Preliminary Blood - Venous No growth after 24 hours. Assessment and Plan (1) Influenza: Status: Acute Plan 69M PMH copd, mood disorder, bph, gerd presented with sob Viral sepsis secondary to flu a complicated by COPD with acute decompensation Continue Tamiflu, steroids, DuoNebs, azithromycin Mood disorder Continue Celexa and Ativan GERD PPI BPH Flomax DVT prophylaxis with Lovenox Full Code reason for continued hospitalization: Still short of breath Quality Stroke Does the patient have a stroke diagnosis?: No VTE Prior VTE?: No VTE Risk Level:: Medical - moderate - high VTE Device Contraindication: Treatment Not Indicated VTE Drug Contraindication: N/A - Med Ordered
[2024-12-18] MEDS: Enoxaparin Sodium 40 MG/0.4 ML SYRINGE SUBCUT (17:17)
[2024-12-18] MEDS: LORazepam 0.5 MG TABLET PO (17:21)
[2024-12-18] MEDS: Acetaminophen 325 MG TABLET 650 MG PO (17:21)
[2024-12-19] VITALS (7 sets, daily range): BP systolic 121–148; BP diastolic 58–84; PULSE 74–86; RESP 16–18; TEMP 36.1–36.9; O2SAT 93–96
[2024-12-19] MEDS: Lactated Ringers 1,000 ML 100 ML IVCONT (00:44)
[2024-12-19] MEDS: guaiFENesin 200 MG/10 ML 10 ML LIQUID PO (02:29)
[2024-12-19] MEDS: Benzonatate 100 MG CAPSULE PO (02:29)
[2024-12-19] MEDS: Oseltamivir Phosphate 75 MG CAPSULE PO ×2 (06:05→18:09)
[2024-12-19 07:07] LABS: Hematocrit 36.8 % (42.0-52.0); Hemoglobin 12.4 g/dl (14.0-18.0); Mean Corpuscular HGB Conc 33.7 g/dl (31.0-36.0); Mean Corpuscular Hemoglobin 31.6 pg (27.0-33.0); Mean Corpuscular Volume 93.9 fL (80.0-98.0); Mean Platelet Volume 10.8 fL (9.4-12.4); Platelet Count 213 X10*3/uL (160-400); Red Blood Count 3.92 X10*6/uL (4.60-5.80); Red Cell Distribution Width 14.8 % (11.0-16.0); White Blood Count 6.5 X10*3/uL (4.8-10.8)
[2024-12-19 07:22] LABS: Anion Gap 12 (12-20); Blood Urea Nitrogen 10 mg/dL (9-16); Calcium 8.3 mg/dL (8.4-10.2); Carbon Dioxide 25 mmol/L (22-29); Chloride 113 mmol/L (96-108); Creatinine Clr Calc Pharmacy 113.6; Estimated Glomerular Filt Rate > 60; Glucose Random 110 mg/dL (60-115); Potassium 3.8 mmol/L (3.3-5.1); Sodium 146 mmol/L (135-145)
--- NOTE | 2024-12-19 08:46 | HO.PM.IMPN ---
Subjective Subjective Date of Service: 12/19/24 Interval History: still feels terrible, sob Physical Exam Vital Signs: Vital Signs: Last Vital Signs Temp 98.5 F 12/19/24 07:45 Pulse 80 12/19/24 07:45 Resp 16 12/19/24 07:45 BP 148/70 H 12/19/24 07:45 Pulse Ox 95 12/19/24 07:45 O2 Del Method Room Air 12/19/24 07:45 O2 Flow Rate 1.5 12/18/24 06:14 BMI result Body Mass Index 23.5 General: AO X 3, ill appearing Resp: end exp wheeze bilateral, no accessory muscles used CVS: S1,S2,RRR GI: soft, non tender, non distended Neuro: motor grossly intact, alert Psych: appropriate affect, appropriate insight Objective Data Active Medications Acetaminophen (Acetaminophen 325 Mg Tablet) 650 mg PO Q6H PRN PRN Reason: Pain, Mild 1-3,fever,headache Last Admin: 12/18/24 17:21 Dose: 650 mg Documented By: ADAN Albuterol Sulfate (Albuterol Sulfate (0.083%) 2.5 Mg/3 Ml Vial.Neb) 2.5 mg INHALE Q4H PRN PRN Reason: Shortness of Breath/Wheezing Last Admin: 12/18/24 05:43 Dose: 2.5 mg Documented By: PADMAJA Albuterol/Ipratropium (Albuterol/Iprat 2.5/0.5mg 3 Ml Ampul.Neb) 3 ml INHALE RQ4H WHILE AWAKE [facility] Last Admin: 12/19/24 07:38 Dose: Not Given Documented By: CECI Non-Admin Reason: Patient Asleep Azithromycin (Azithromycin 500 Mg Tablet) 500 mg PO Q24H [facility] Last Admin: 12/18/24 14:48 Dose: 500 mg Documented By: ADAN Benzonatate (Benzonatate 100 Mg Capsule) 100 mg PO TID PRN PRN Reason: Cough Last Admin: 12/19/24 02:29 Dose: 100 mg Documented By: EDUARDO-ZATATE Calcium Carbonate (Calcium Carbonate 750 Mg Tab.Chew) 750 mg PO Q4H PRN PRN Reason: Heartburn Enoxaparin Sodium (Enoxaparin Sodium 40 Mg/0.4 Ml Syringe) 40 mg SUBCUT Q24H [facility] Last Admin: 12/18/24 17:17 Dose: 40 mg Documented By: ADAN Guaifenesin (Guaifenesin 200 Mg/10 Ml 10 Ml Liquid) 10 ml PO Q6H PRN PRN Reason: Cough Last Admin: 12/19/24 02:29 Dose: 10 ml Documented By: ZHOU Guaifenesin/Dextromethorphan (Guaifenesin Dm 600/30 1 Tab Tab.Er.12h) 1 tab PO BID [facility] Last Admin: 12/18/24 20:06 Dose: 1 tab Documented By: ZHOU Loperamide HCl (Loperamide Hcl 2 Mg Capsule) 2 mg PO Q4H PRN PRN Reason: Diarrhea Last Admin: 12/18/24 17:16 Dose: 2 mg Documented By: ADAN Lorazepam (Lorazepam 0.5 Mg Tablet) 0.5 mg PO Q6H PRN PRN Reason: Anxiety Last Admin: 12/18/24 17:21 Dose: 0.5 mg Documented By: ADAN Magnesium Hydroxide (Milk Of Magnesia 30 Ml Oral.Susp) 30 ml PO DAILY PRN PRN Reason: Constipation Melatonin (Melatonin 3 Mg Tablet) 6 mg PO BEDTIME PRN PRN Reason: Insomnia Methylprednisolone Sodium Succinate (Methylprednisolone Sod Succ 40 Mg/Ml Vial) 40 mg IVPUSH Q12H [facility] Last Admin: 12/18/24 20:07 Dose: 40 mg Documented By: ZHOU Ondansetron HCl (Ondansetron Hcl 4 Mg/2 Ml Vial) 4 mg IVPUSH Q8H PRN PRN Reason: Nausea and Vomiting Oseltamivir Phosphate (Oseltamivir Phosphate 75 Mg Capsule) 75 mg PO Q12H [facility] Stop: 12/22/24 19:01 Last Admin: 12/19/24 06:05 Dose: 75 mg Documented By: ZHOU Pregabalin (Pregabalin 150 Mg Capsule) 150 mg PO BID [facility] Last Admin: 12/18/24 20:06 Dose: 150 mg Documented By: ZHOU Sodium Chloride (0.9 % Sodium Chloride Flush 3 Ml Syringe) 3 ml IVFLUSH QSHIFT [facility] Last Admin: 02/12/25 23:18 Dose: Not Given Documented By: ZHOU Non-Admin Reason: IV Running Tamsulosin HCl (Tamsulosin Hcl 0.4 Mg Capsule) 0.8 mg PO DAILY [facility] Last Admin: 12/18/24 09:18 Dose: 0.8 mg Documented By: JENNIFER Labs 12/19/24 06:55 12/19/24 06:55 Labs: Laboratory Results - last 24 hr 12/19/24 06:55 MCV 93.9 MCH 31.6 MCHC 33.7 RDW 14.8 Plt Count 213 MPV 10.8 Absolute Nucleated RBC 0.000 Nucleated RBC % (auto) 0.0 Anion Gap 12 Estim Creat Clear Calc 113.6 Estimated GFR > 60 Random Glucose 110 Calcium 8.3 L Microbiology Microbiology Results: Microbiology 12/17/24 14:41 Blood Culture - Preliminary Blood - Venous No growth after 24 hours. 12/17/24 14:34 Blood Culture - Preliminary Blood - Venous No growth after 24 hours. Assessment and Plan (1) Influenza: Status: Acute Plan 69M PMH copd, mood disorder, bph, gerd presented with sob Viral sepsis secondary to flu a complicated by COPD with acute decompensation Continue Tamiflu, steroids, DuoNebs, azithromycin Mood disorder Continue Celexa and Ativan GERD PPI BPH Flomax DVT prophylaxis with Lovenox Full Code reason for continued hospitalization: Still short of breath Quality Stroke Does the patient have a stroke diagnosis?: No VTE Prior VTE?: No VTE Risk Level:: Medical - moderate - high VTE Device Contraindication: Treatment Not Indicated VTE Drug Contraindication: N/A - Med Ordered
[2024-12-19] MEDS: Tamsulosin HCL 0.4 MG CAPSULE 0.8 MG PO (09:18)
[2024-12-19] MEDS: guaiFENesin DM 600/30 1 TAB TAB.ER.12H PO ×2 (09:19→20:26)
[2024-12-19] MEDS: Pregabalin 150 MG CAPSULE PO ×2 (09:19→20:25)
[2024-12-19] MEDS: methylPREDNISolone Sod Succ 40 MG/ML VIAL IVPUSH ×2 (09:19→20:25)
[2024-12-19] MEDS: Loperamide HCl 2 MG CAPSULE PO (09:50)
--- NOTE | 2024-12-19 11:24 | MHC.CM.PN ---
Per MD rounds potential dc tomorrow. CM met with patient to discuss. Patient agreeable to plan, requests BLS transport home. Also notes that he does not have any skilled services though [facility], just home making. CM will continue to follow.
[2024-12-19] MEDS: Albuterol/Iprat 2.5/0.5MG 3 ML AMPUL.NEB INHALE ×3 (11:28→19:25)
--- NOTE | 2024-12-19 15:15 | MHC.CM.PN ---
Patient is now inpatient. IMM delivered.
[2024-12-19] MEDS: Azithromycin 500 MG TABLET PO (15:30)
[2024-12-19] MEDS: 0.9 % Sodium Chloride Flush 3 ML SYRINGE IVFLUSH (15:31)
[2024-12-19] MEDS: Enoxaparin Sodium 40 MG/0.4 ML SYRINGE SUBCUT (18:10)
[2024-12-19] MEDS: LORazepam 0.5 MG TABLET PO (18:16)
[2024-12-20] VITALS (7 sets, daily range): BP systolic 123–138; BP diastolic 62–72; PULSE 65–83; RESP 16–18; TEMP 36.2–36.8; O2SAT 95–98
[2024-12-20] MEDS: 0.9 % Sodium Chloride Flush 3 ML SYRINGE IVFLUSH ×2 (00:28→08:46)
[2024-12-20] MEDS: Albuterol Sulfate (0.083%) 2.5 MG/3 ML VIAL.NEB INHALE (01:46)
[2024-12-20] MEDS: LORazepam 0.5 MG TABLET PO (02:01)
[2024-12-20] MEDS: Albuterol/Iprat 2.5/0.5MG 3 ML AMPUL.NEB INHALE ×2 (08:27→12:29)
[2024-12-20] MEDS: Pregabalin 150 MG CAPSULE PO (08:45)
[2024-12-20] MEDS: Omeprazole 40 MG CAPSULE.DR PO (08:45)
[2024-12-20] MEDS: guaiFENesin DM 600/30 1 TAB TAB.ER.12H PO (08:45)
[2024-12-20] MEDS: Oseltamivir Phosphate 75 MG CAPSULE PO (08:45)
[2024-12-20] MEDS: Tamsulosin HCL 0.4 MG CAPSULE 0.8 MG PO (08:45)
[2024-12-20] MEDS: methylPREDNISolone Sod Succ 40 MG/ML VIAL IVPUSH (08:46)
--- NOTE | 2024-12-20 09:06 | P.DS_ITS ---
DS: Providers Provider Date of Service: 12/20/24 Date of admission: 12/19/24 08:47 Date of discharge: 12/20/24 Primary care physician: Ras Benavidez III, MD DS: Diagnosis Discharge Diagnosis (1) Influenza: Status: Acute DS: Summary Hospital Course Hospital Course: from initial hpi: 69 years old male with PMH of COPD, depression, anxiety, GERD and BPH who presented to the hospital complaining of difficulties breathing, cough and fever. The patient reports having URI symptoms for few days now with fever, chills, loose stool and decrease appetite. No chest pain, palpitations, nausea, vomiting, diarrhea or urinary symptoms. He reports increasing cough with thick greensh mucus. In ED found to be positive for Flu with wheezing and O2 requirement. CXR showing patchy opacities right mid and lower lung, appear chronic in nature and are unchanged from the prior exam. Admitted for further evaluation and treatment. hospital course: Patient was admitted for viral sepsis secondary to influenza a complicated by COPD with acute decompensation. He was treated with steroids, Tamiflu, DuoNebs, azithromycin. Symptoms slowly improved and will be discharged home on 5 more days of prednisone and complete Tamiflu course. For mood disorder was continued on Celexa and Ativan. For GERD was continued on PPI. For BPH was continued on Flomax. Time Attestation Discharge Coordination Time (in mins): 33 Quality: Safe Use of Opioids Does Pt have an Active Cancer Diagnosis on the Problem List?: No Quality: Stroke Does the patient have a stroke diagnosis?: No Physical Exam Vital Signs: Vital Signs: Last Vital Signs Temp 97.5 F 12/20/24 07:36 Pulse 83 12/20/24 08:29 Resp 16 12/20/24 08:29 BP 123/62 12/20/24 07:36 Pulse Ox 95 12/20/24 07:36 O2 Del Method Room Air 12/20/24 07:36 O2 Flow Rate 1.5 12/18/24 06:14 BMI result Body Mass Index 23.5 General: AO X 3, no acute distress Resp: CTA bilateral, no accessory muscles used CVS: S1,S2,RRR GI: soft, non tender, non distended Neuro: motor grossly intact, alert Psych: appropriate affect, appropriate insight DS: Data Data Completed and Pending Labs on day of discharge: Preliminary micro results at discharge 12/17/24 14:41 Blood Culture - Preliminary Blood - Venous No growth after 48 hours. 12/17/24 14:34 Blood Culture - Preliminary Blood - Venous No growth after 48 hours. Discharge Plan Discharge Anticipated Discharge Date/Time: 12/20/24 09:03 Patient Disposition: Home, Self-Care Discharge Diagnosis: flu, copd Referrals: Ras Benaviedz III, MD [Primary Care Provider] - 1 Week Discharge Medications: New oseltamivir [Tamiflu] 75 mg Capsule 75 mg PO Q12H Qty: 5 0RF azithromycin 500 mg Tablet 500 mg PO Q24H Qty: 3 0RF prednisone 20 mg tablet 40 mg PO DAILY Qty: 10 0RF Continued omeprazole 20 mg capsule,delayed release(DR/EC) 20 mg PO DAILY@0630 pregabalin 150 mg capsule 300 mg PO DAILY pregabalin 150 mg capsule 150 mg PO BID@1400,2100 sucralfate 1 gram tablet 1 g PO QID tamsulosin 0.4 mg capsule 0.8 mg PO DAILY lorazepam 0.5 mg Tablet 0.5 mg PO QID PRN (Reason: Anxiety) zolpidem 10 mg Tablet 10 mg PO BEDTIME PRN (Reason: Insomnia) albuterol sulfate 90 mcg/actuation Hfa Aerosol Inhaler 2 puff INHALATION QID PRN (Reason: Shortness Of Breath Or Wheezing) Arnuity Ellipta 100 mcg/actuation blister with device 1 inh INHALATION DAILY Combivent Respimat 20-100 mcg/actuation mist 1 puff INHALATION QID Discharge Orders: Discharge Order (Routine); Ordered 12/20/24 Ordered By: Alexys Leon Diet: Advance to usual diet Activity on Discharge: As tolerated Stand Alone Forms: Patient Portal Discharge page Print Language: Kyrgyz Care Plan Goals: recovery Health Concerns: flu copd Plan of Treatment: prednisone, tamiflu Assessment: see above
--- NOTE | 2024-12-20 10:40 | MHC.CM.PN ---
Per MD patient medically cleared for dc home self care. Patient is requesting BLS transport. Scheduled for 1230pm. , RN and patient aware. Last IMM 12/19.
== END 2024-12-20 12:56 | disposition home or self-care (01) | DRG 872 ==
LOC: HO.ED 16:26 → HO.EDOVER 17:38 → HO.S3 12-18 11:25
PROVIDERS: Admitting Provider Student in an Organized Health Care Education/Training Program; Emergency Provider Emergency Medicine; PCP Internal Medicine; Visit Provider Internal Medicine
DX: A41.89 Other specified sepsis (principal); J44.1 Chronic obstructive pulmonary disease with (acute) exacerbation; F17.210 Nicotine dependence, cigarettes, uncomplicated; K21.9 Gastro-esophageal reflux disease without esophagitis; F39 Unspecified mood [affective] disorder; Z85.46 Personal history of malignant neoplasm of prostate; N40.0 Benign prostatic hyperplasia without lower urinary tract symptoms; J10.1 Influenza due to other identified influenza virus with other respiratory manifestations; Z71.6 Tobacco abuse counseling; Z79.899 Other long term (current) drug therapy
CPT/HCPCS: 0241U; 36415; 71045; 80048; 80076; 82803; 83605; 85025; 85027; 85610; 85730; 87040; 93005; 94640; 99221; 99285; J0456; J0692; J1650; J2919; J3371; J7120

== ENCOUNTER → 2024-12-17 14:31 | Outpatient (BNV) | payer MEDICARE, MEDICAID, SELFPAY | PROVIDERS: Admitting Provider Student in an Organized Health Care Education/Training Program; Emergency Provider Emergency Medicine; PCP Internal Medicine; Visit Provider Internal Medicine Cardiovascular Disease | DX: R00.0 Tachycardia, unspecified (principal) | CPT/HCPCS: 93010 ==

== ENCOUNTER → 2024-12-17 14:32 | Outpatient (BNV) | payer MEDICARE, MEDICAID, SELFPAY | PROVIDERS: Emergency Provider Emergency Medicine; Visit Provider Radiology Diagnostic Radiology | DX: R91.8 Other nonspecific abnormal finding of lung field (principal) | CPT/HCPCS: 71045 ==

== ENCOUNTER → 2024-12-17 16:23 | Outpatient (BNV) | payer MEDICARE, MEDICAID, SELFPAY | PROVIDERS: Emergency Provider Emergency Medicine; PCP Internal Medicine; Visit Provider Student in an Organized Health Care Education/Training Program | DX: J11.1 Influenza due to unidentified influenza virus with other respiratory manifestations (principal); J44.1 Chronic obstructive pulmonary disease with (acute) exacerbation; A41.89 Other specified sepsis; B97.89 Other viral agents as the cause of diseases classified elsewhere | CPT/HCPCS: 99223; 99232; 99233; 99239 ==

== ENCOUNTER 2025-04-23 18:17 | Emergency (ER) | payer MEDICARE, MEDICAID, SELFPAY ==
--- NOTE | ~2025-04-23 | US_ITS ---
CLINICAL HISTORY: pain VENOUS DUPLEX ULTRASOUND LEFT LOWER EXTREMITY Comparison: None provided Findings: The visualized deep veins are fully compressible with normal Doppler color flow and spectral tracings. No popliteal cyst. IMPRESSION: 1. Negative for left lower extremity deep vein thrombosis. This document has been electronically signed by: Dorothy Sparks DO on 04/23/2025 19:50:46
--- NOTE | ~2025-04-23 | XR_ITS ---
CLINICAL HISTORY: pain 4 view left knee Comparison: None provided Findings: Bones intact. No dislocations. Mild tricompartmental joint space narrowing. No joint effusion. No radiopaque foreign body. Prominent arterial calcifications. IMPRESSION: No acute fracture, dislocation or significant joint effusion. This document has been electronically signed by: Dorothy Sparks DO on 04/23/2025 20:19:26
[2025-04-23 18:36] VITALS: BP 135/68; PULSE 100; RESP 16; TEMP 36.3; O2SAT 97; BMI 23.3
--- NOTE | 2025-04-23 18:38 | ED.GENADULT ---
HPI - General Adult General Chief complaint: Extremity Problem Stated complaint: L leg pain Time Seen by Provider: 04/23/25 22:22 Source: patient Limitations: no limitations History of Present Illness ED Provider: Vinayak Hadley PA-C HPI narrative: 69 year old male with a history of COPD, presents with left lower extremity pain of unclear duration. Patient states he is having pain from distal thigh to his foot. Denies trauma, or overuse injury. Denies redness warmth or swelling of the knee, he is ambulatory, but limping. Related Data Home Medications ?Medication ?Instructions ?Recorded ?Confirmed omeprazole 20 mg capsule,delayed 20 mg PO DAILY@0630 07/27/24 12/17/24 release pregabalin 150 mg capsule 150 mg PO BID@1400,2100 07/27/24 12/17/24 pregabalin 150 mg capsule 300 mg PO DAILY 07/27/24 12/17/24 sucralfate 1 gram tablet 1 g PO QID 07/27/24 12/17/24 tamsulosin 0.4 mg capsule 0.8 mg PO DAILY 07/27/24 12/17/24 albuterol sulfate 90 mcg/actuation 2 puff inhalation QID PRN 07/28/24 12/17/24 aerosol inhaler Shortness Of Breath Or Wheezing lorazepam 0.5 mg tablet 0.5 mg PO QID PRN Anxiety 07/28/24 12/17/24 zolpidem 10 mg tablet 10 mg PO BEDTIME PRN Insomnia 07/28/24 12/17/24 fluticasone furoate 100 1 inh inhalation DAILY 12/17/24 12/17/24 mcg/actuation blister powder for inhalation (Arnuity Ellipta) ipratropium 20 mcg-albuterol 100 1 puff inhalation QID 12/17/24 12/17/24 mcg/actuation mist for inhalation (Combivent Respimat) Previous Rx's ?Medication ?Instructions ?Recorded azithromycin 500 mg tablet 500 mg PO Q24H #3 tabs 12/20/24 oseltamivir 75 mg capsule (Tamiflu) 75 mg PO Q12H #5 caps 12/20/24 prednisone 20 mg tablet 40 mg (2 x 20 mg) PO DAILY #10 tabs 12/20/24 meloxicam 15 mg tablet 15 mg PO DAILY #7 tabs 04/23/25 Allergies Allergy/AdvReac Type Severity Reaction Status Date / Time Penicillins (PENICILLINS) Allergy Intermediate UPSET Verified 04/23/25 18:39 STOMACH acetaminophen (ACETAMINOPHEN) Allergy Unknown DIARRHEA Verified 04/23/25 18:39 codeine (CODEINE) Allergy Unknown NAUSEA & Verified 04/23/25 18:39 VOMITING latex (LATEX) Allergy Unknown RASH Verified 04/23/25 18:39 Review of Systems Review of Systems: Yes all other systems are reviewed and are negative Constitutional: Constitutional: Denies fatigue and Denies fever(s) Cardiovascular: Cardiovascular: Denies chest pain and Denies dyspnea Respiratory: Respiratory: Denies dyspnea Musculoskeletal: Musculoskeletal: Reports arthralgias and Denies joint swelling Integumentary/Breasts: Skin/Breast: Denies erythema Endocrine: Endocrine: Denies fatigue PMF Past Medical History Attestation statement: The following information was validated with the patient. Medical History COPD exacerbation Acute respiratory failure with hypoxemia Pneumonia COPD (chronic obstructive pulmonary disease) Social History Social History Household Members: None Housing: Other Housing Other:: multi family Do you presently have visiting nurse or other home services: No Unable to assess alcohol history related to: Unknown Patient Tobacco Use Status: Current everyday Tobacco user Tobacco use type: Cigarette Cigarette Packs Per Day: 1 Cigarettes Per Day: 20.0 Years Smoked: 40 e-Cigarette/Vaping Use: Never Used Second Hand Smoke Exposure: No Substance Use Type: Marijuana service: No Physical Exam ED Vital Signs: Vital Signs - 24 hr 04/23/25 18:36 04/23/25 22:00 Temperature 97.3 F 97 F Pulse Rate 100 66 Respiratory Rate 16 16 Blood Pressure 135/68 129/49 L Pulse Oximetry 97 98 Oxygen Delivery Method Room Air Room Air BMI result Body Mass Index 23.3 Const Other: Alert well-appearing Orientation/consciousness: patient oriented x3 Resp Effort & Inspection: normal respiratory effort Cardio Other: Normal peripheral perfusion Skin Other: Warm dry no rash Neuro Other: Antalgic gait General: patient oriented x3, no focal motor deficits and CN's II-XI intact bilaterally Extrem Other: No erythema warmth or swelling noted over the knee, able to flex and extend Psych Other: Cooperative Course Course Course Narrative: RME, this is a rapid medical exam performed by Johny Cruz please refer to primary provider for complete H&P- 69-year-old male presents for evaluation of left leg pain. His pain starts in the thigh and goes down to his leg. Plan for x-ray of the knee and ultrasound of left lower extremity. Medications Administered Discontinued Medications Generic Name Dose Route Start Last Admin Trade Name Dominick PRN Reason Stop Dose Admin Ketorolac Tromethamine 15 mg 04/23/25 22:51 04/23/25 23:08 Ketorolac Tromethamine 15 Mg/Ml Vial IM 04/23/25 22:52 15 mg ONCE ONE Administration Medical Decision Making Medical Decision Making MDM Narrative: 69 year old male with a history of COPD, presents with left lower extremity pain of unclear duration. Patient states he is having pain from distal thigh to his foot. Denies trauma, or overuse injury. Denies redness warmth or swelling of the knee, he is ambulatory, but limping. No chronic issues History: Per patient I have considered the following differential diagnoses: Septic joint, gout, fracture, dislocation, sprain, DVT Plan: X-ray and DVT study ordered from triage, the patient has significant arthritis, we will send with anti-inflammatory. The joint is not red warm or swollen, he can flex and extend, this is not a septic joint, I do not have suspicion for gout. I have independently reviewed the following tests: X-ray left knee: Findings: Bones intact. No dislocations. Mild tricompartmental joint space narrowing. No joint effusion. No radiopaque foreign body. Prominent arterial calcifications. IMPRESSION: No acute fracture, dislocation or significant joint effusion. DVT study left lower extremity:Findings: The visualized deep veins are fully compressible with normal Doppler color flow and spectral tracings. No popliteal cyst. IMPRESSION: 1. Negative for left lower extremity deep vein thrombosis. Discharge Plan Discharge Clinical Impression: Arthritis of knee, left Patient Disposition: Home, Self-Care Instructions: Osteoarthritis (ED) Additional Instructions: The ultrasound of the left lower extremity was negative for a clot. The x-ray reveals that you have arthritis of the knee. See home care instructions. Use the meloxicam as directed, take it with food, this is an anti-inflammatory. I am also providing you with a contact for our orthopedic service, you may benefit from cortisone joint injections. You can call to schedule an appointment. Prescriptions: New meloxicam 15 mg tablet 15 mg PO DAILY Qty: 7 0RF No Action omeprazole 20 mg capsule,delayed release(DR/EC) 20 mg PO DAILY@0630 pregabalin 150 mg capsule 300 mg PO DAILY pregabalin 150 mg capsule 150 mg PO BID@1400,2100 sucralfate 1 gram tablet 1 g PO QID tamsulosin 0.4 mg capsule 0.8 mg PO DAILY lorazepam 0.5 mg Tablet 0.5 mg PO QID PRN (Reason: Anxiety) zolpidem 10 mg Tablet 10 mg PO BEDTIME PRN (Reason: Insomnia) albuterol sulfate 90 mcg/actuation Hfa Aerosol Inhaler 2 puff INHALATION QID PRN (Reason: Shortness Of Breath Or Wheezing) Arnuity Ellipta 100 mcg/actuation blister with device 1 inh INHALATION DAILY Combivent Respimat 20-100 mcg/actuation mist 1 puff INHALATION QID oseltamivir [Tamiflu] 75 mg Capsule 75 mg PO Q12H Qty: 5 0RF azithromycin 500 mg Tablet 500 mg PO Q24H Qty: 3 0RF prednisone 20 mg tablet 40 mg PO DAILY Qty: 10 0RF Referrals: Hill Thomas MD [Physician, Orthopedics] Referral Note: left knee tricomp. arthritis Interventions: ED Discharge Assessment Last Done: 04/23/25 23:24 Discharge Date/Time: 04/23/25 23:24 Print Language: Wolof
--- NOTE | 2025-04-23 21:57 | PC.NURSE ---
Patient moved to ED 23 in wheelchair. Assisted into stretcher. Awaiting ED provider evaluation.
[2025-04-23 22:00] VITALS: BP 129/49; PULSE 66; RESP 16; TEMP 36.1; O2SAT 98
--- OUTSIDE RECORDS SUMMARY | 2025-04-23 22:05 | XMS_ITS ---
Author Organization [address] Address [address] [place] [id number] Phone Care Team Providers Care Records Clerk Name Role Phone Ras Benavidez MD Primary Care Provider [phone] High Risk Care Management Status:Ongoing (Active) Start date:04/23/2025 Enrollment date:04/23/2025 Case Team Name Relationship Phone Bernadette Lott pure culture operator(Responsible S taff) Continued Care and Services Coordination
[2025-04-23] MEDS: Ketorolac Tromethamine 15 MG/ML VIAL IM (23:08)
[2025-04-23 23:24] VITALS: BP 126/79; PULSE 81; RESP 16; TEMP 36.9; O2SAT 97
== END 2025-04-23 23:24 | disposition home or self-care (01) ==
PROVIDERS: Emergency Provider Emergency Medicine; PCP Internal Medicine
DX: M17.12 Unilateral primary osteoarthritis, left knee (principal); M79.605 Pain in left leg
CPT/HCPCS: 73562; 93971; 96372; 99284; J1885

== ENCOUNTER → 2025-04-23 18:38 | Outpatient (BNV) | payer MEDICARE, MEDICAID, SELFPAY | PROVIDERS: PCP Internal Medicine; Visit Provider Radiology Diagnostic Radiology | DX: M79.662 Pain in left lower leg (principal); M25.562 Pain in left knee | CPT/HCPCS: 73562; 93971 ==